=== PATIENT | male | born 1940 | race Caucasian/White ===

== ENCOUNTER → 2016-08-13 | Outpatient (REF) | payer MEDICARE, MEDICAID, OTHER ==
[~2016-08-13] MED LIST: /ADVA50050 IN; /BUSP5TA PO; /ESOM40CA PO; /IPRA3SP INH; /ONDA4TA OR; /PANT40TA OR; /TAMS4CA OR; ACEP650S PR; ALBUTEROL LIQ INH; ALUMSUS2 PO; ANTACID PO; ASPI1TAB PO; ASPI325T PO; AVOD0.5C OR; BABY81CH OR; BACITAB3 PO; BACT800T5 PO; BISA5TAB7 PO; CEFT1INJ3 INJ; CIPR25SS PO; COLA100C PO; COLA100C2 OR; DEPA250T32 PO; DIVA500T3 PO; DOCU100C PO; DULC10SU2 PR; DULCOLAX SUPP PR; ENEMENE3 PR; FISH1000 PO; FLEEENE4 PR; FLEETS ENEMA PR; GUAIFENESIN PO; HYDR50TA8 PO; LEVA750T PO; LOVAZA OR; MENTHOL PO; METO10TA2 OR; METO10TA2 PO; METO5TAB2 OR; MILKSUS PO; MOM; MOM CONCENTRATE PO; MUCU400T2 OR; ONDA1TAB15 PO; PEG1POW PO; PRAV1TAB39 PO; PRAV40TA PO; PROT1TAB2 PO; REGL10TA6 PO; REGL5TAB2 PO; RISP0.2515 PO; RISP1TAB PO; ROSU10TA PO; SENN8.6T10 PO; SENNA S PO; SENO8.6T10 PO; SIMETH PO; SORB70SO PO; TYLE325T5 PO; TYLENOL PO; VICO5TAB PO; VIT-D PO; VITA400C PO; VITMTA PO; ZYPR2.5T2 PO; [UNRECOGNIZED DRUG - CODE]; [UNRECOGNIZED DRUG - CODE] PO; [UNRECOGNIZED DRUG - OTHER]; [UNRECOGNIZED DRUG - OTHER] PO; [UNRECOGNIZED DRUG - OTHER] PO
--- NOTE | 2016-08-13 12:00 | REP ---
Clinical: Abdominal distension. Technique: Portable upright view of the chest and supine view of the abdomen/pelvis. Findings: No obvious free air below the diaphragm to suggest pneumoperitoneum. Bowel gas pattern is nonspecific although fecal stasis and constipation cannot be excluded. Impression: Nonspecific bowel gas pattern. Cannot exclude fecal stasis and constipation. Signed by Obdulio Thompson MD 08/13/2016 11:51 A
== END ==
PROVIDERS: ATTEND Internal Medicine
DX: R14.0 Abdominal distension (gaseous) (principal)

== ENCOUNTER → 2016-09-08 | Outpatient (REF) | payer MEDICARE, MEDICAID, OTHER ==
[2016-09-08 09:40] LABS: MEAN CORPUSCULAR HEMOGLOBIN 29.5 pg (27.0-33.0); MEAN CORPUSCULAR HGB CONC 33.9 g/dl (32.0-36.5); MEAN CORPUSCULAR VOLUME 87.1 fl (80.0-96.0); RED CELL DISTRIBUTION WIDTH 12.5 % (11.5-14.5); WHITE BLOOD COUNT 6.7 K/mm3 (4.0-10.0)
== END ==
PROVIDERS: ATTEND Internal Medicine
DX: I44.0 Atrioventricular block, first degree (principal)

== ENCOUNTER → 2016-10-05 | Outpatient (REF) | payer MEDICARE, MEDICAID, OTHER ==
[~2016-10-05] MED LIST changes: -COLA100C PO; +COLA100C3 PO
== END ==
PROVIDERS: ATTEND Internal Medicine
DX: F31.9 Bipolar disorder, unspecified (principal)

== ENCOUNTER → 2016-10-13 | Outpatient (REF) | payer MEDICARE, MEDICAID, OTHER ==
[2016-10-13 14:01] LABS: MEAN CORPUSCULAR HEMOGLOBIN 30.1 pg (27.0-33.0); MEAN CORPUSCULAR HGB CONC 33.8 g/dl (32.0-36.5); RED CELL DISTRIBUTION WIDTH 12.7 % (11.5-14.5); WHITE BLOOD COUNT 8.4 K/mm3 (4.0-10.0)
[2016-10-13 14:29] LABS: ANION GAP 12 MEQ/L (8-16); BLOOD UREA NITROGEN 14 MG/DL (7-18); CALCIUM LEVEL 8.2 MG/DL (8.8-10.2); CARBON DIOXIDE LEVEL 25 MEQ/L (21-32); CHLORIDE LEVEL 100 MEQ/L (98-107); CREATININE FOR GFR 0.87 MG/DL (0.70-1.30); GLOMERULAR FILTRATION RATE > 60.0 (>42); GLUCOSE, FASTING 102 MG/DL (83-110); POTASSIUM SERUM 3.9 MEQ/L (3.5-5.1); SODIUM LEVEL 137 MEQ/L (136-145)
== END ==
PROVIDERS: ATTEND Internal Medicine
DX: R05 Cough (principal); R50.9 Fever, unspecified

== ENCOUNTER 2016-11-21 00:26 | Emergency (ER) | payer MEDICAID, MEDICARE, OTHER ==
[~2016-11-21] VITALS: Ht 177.8 cm; Wt 92.9 kg
[2016-11-21] MEDS ORDERED: MORPHINE 2 MG/ML 1ML SYRINGE IV ONE (01:00)
[2016-11-21 01:10] LABS: BASO % 0.6 % (0.0-1.0); EOS # 0.2 K/mm3 (0.0-0.50); EOS % 2.8 % (0.0-3.0); LARGE UNSTAINED CELL # 0.2 K/mm3 (0.0-0.4); LARGE UNSTAINED CELL % 3.8 % (0.0-4.0); LYMPH # 1.8 K/mm3 (1.5-4.5); LYMPH % 28.9 % (24.0-44.0); MEAN CORPUSCULAR HEMOGLOBIN 30.3 pg (27.0-33.0); MEAN CORPUSCULAR HGB CONC 34.5 g/dl (32.0-36.5); MEAN CORPUSCULAR VOLUME 87.7 fl (80.0-96.0); MONO # 0.4 K/mm3 (0.0-0.8); MONO % 5.7 % (0.0-5.0); NEUTROPHILS # 3.6 K/mm3 (1.8-7.7); NEUTROPHILS % 58.2 % (36.0-66.0); PLATELET COUNT, AUTOMATED 292 k/mm3 (150-450); RED CELL DISTRIBUTION WIDTH 12.6 % (11.5-14.5); WHITE BLOOD COUNT 6.2 K/mm3 (4.0-10.0)
[2016-11-21] MEDS ORDERED: GASTROGRAFIN SOLUTION 30ML (Q9963) PO ONE ×2 (01:15)
[2016-11-21 01:22] LABS: INR 0.97
[2016-11-21 01:35] LABS: ALBUMIN 3.4 GM/DL (3.2-5.2); ALBUMIN/GLOBULIN RATIO 0.87 (1.00-1.93); ALKALINE PHOSPHATASE 99 U/L (45-117); ALT/SGPT 53 U/L (12-78); AMYLASE 61 U/L (25-115); ANION GAP 8 MEQ/L (8-16); AST/SGOT 33 U/L (15-37); BILIRUBIN,DIRECT < 0.1 MG/DL (0.0-0.2); BILIRUBIN,TOTAL 0.4 MG/DL (0.2-1.0); BLOOD UREA NITROGEN 8 MG/DL (7-18); CALCIUM LEVEL 9.2 MG/DL (8.8-10.2); CARBON DIOXIDE LEVEL 25 MEQ/L (21-32); CHLORIDE LEVEL 104 MEQ/L (98-107); CREATININE FOR GFR 0.89 MG/DL (0.70-1.30); GLOMERULAR FILTRATION RATE > 60.0 (>42); GLUCOSE, FASTING 103 MG/DL (83-110); POTASSIUM SERUM 4.1 MEQ/L (3.5-5.1); SODIUM LEVEL 137 MEQ/L (136-145); TOTAL PROTEIN 7.3 GM/DL (6.4-8.2)
[2016-11-21] MEDS ORDERED: ISOVUE-370 76% 100ML VIAL (Q9967) As Ordered ONE (01:48)
[2016-11-21 04:24] VITALS: BP 138/78
--- NOTE | 2016-11-21 04:30 | REPUSA ---
CLINICAL HISTORY: Abdominal pain. TECHNIQUE: Multiple axial, sagittal and coronal CT images were obtained through the abdomen and pelvi s after administration of oral and intravenous contrast material. COMMENTS: The liver is moderately enlarged with decreased attenuation without mass or defect compatible with fa tty infiltration. Simple hepatic cyst. There is no intra or extrahepatic biliary ductal dilatation. T he spleen is normal. The gallbladder is within normal limits. The pancreas is of normal contour and a ttenuation characteristics. There is no evidence of adrenal mass. Both kidneys demonstrate prompt and equal nephrograms. The kidneys are normal in size, shape and conf iguration. There is no evidence of renal or ureteral mass. No renal or ureteral calculi are identifie d. There is no hydroureter or hydronephrosis. Moderate sliding hiatal hernia. There is nodular wall thickening of distal esophagus, GE junction an d gastric antrum. Further evaluation with upper endoscopy is recommended. No evidence for appendicitis. No evidence for small or large bowel obstruction. There is no evidence of abdominal ascites or lymphadenopathy. Folley catheter is in place. There is no evidence of intrinsic or extrinsic bladder mass. There is no pelvic ascites or lymphadenopathy.Fat containing right inguinal hernia without incarceration. Images of the lung bases show no evidence of pleural or parenchymal mass. There are no pleural effusi ons. The bony structures are free of lytic or blastic lesions. Multilevel degenerative changes are seen in volving the thoracolumbar spine. Scattered calcifications are seen involving the aorta and major bran ches compatible with atherosclerosis. IMPRESSION: Moderate sliding hiatal hernia. There is nodular wall thickening of distal esophagus, GE junction an d gastric antrum. Further evaluation with upper endoscopy is recommended. Fatty liver. Thank you for your kind referral of this patient.
--- NOTE | 2016-11-21 07:15 | ED PDOC ---
Post-Departure Follow-Up radiology report faxed to Dipti Galeas MD Nov 21, 2016 07:14
== END 2016-11-21 05:09 | disposition home or self-care (01) ==
LOC: EDBD 00:26 → M ED 01:14
DX: R10.9 Unspecified abdominal pain (principal); K44.9 Diaphragmatic hernia without obstruction or gangrene; K76.0 Fatty (change of) liver, not elsewhere classified; F03.90 Unspecified dementia, unspecified severity, without behavioral disturbance, psychotic disturbance, mood disturbance, and anxiety; K21.9 Gastro-esophageal reflux disease without esophagitis; J44.9 Chronic obstructive pulmonary disease, unspecified; N40.0 Benign prostatic hyperplasia without lower urinary tract symptoms; Z79.899 Other long term (current) drug therapy; Z88.8 Allergy status to other drugs, medicaments and biological substances
CPT/HCPCS: 74177; 80048; 80076; 82150; 83690; 85025; 85610; 85730; 96374; 99284; Q9963; Q9967

== ENCOUNTER → 2016-12-07 | Outpatient (REF) | payer MEDICARE, MEDICAID ==
[2016-12-07 11:26] LABS: ALBUMIN 3.3 GM/DL (3.2-5.2); ALBUMIN/GLOBULIN RATIO 0.97 (1.00-1.93); ALKALINE PHOSPHATASE 101 U/L (45-117); ALT/SGPT 40 U/L (12-78); ANION GAP 8 MEQ/L (8-16); AST/SGOT 24 U/L (15-37); BILIRUBIN,TOTAL 0.4 MG/DL (0.2-1.0); BLOOD UREA NITROGEN 12 MG/DL (7-18); CALCIUM LEVEL 8.7 MG/DL (8.8-10.2); CARBON DIOXIDE LEVEL 28 MEQ/L (21-32); CHLORIDE LEVEL 101 MEQ/L (98-107); CHOLESTEROL LEVEL 234 MG/DL (<200); CREATININE FOR GFR 0.81 MG/DL (0.70-1.30); GLOMERULAR FILTRATION RATE > 60.0 (>42); GLUCOSE, FASTING 95 MG/DL (83-110); POTASSIUM SERUM 4.4 MEQ/L (3.5-5.1); SODIUM LEVEL 137 MEQ/L (136-145); TOTAL PROTEIN 6.7 GM/DL (6.4-8.2); TRIGLYCERIDES LEVEL 454 MG/DL (<150)
== END ==
PROVIDERS: ATTEND Internal Medicine
DX: E78.5 Hyperlipidemia, unspecified (principal); K21.9 Gastro-esophageal reflux disease without esophagitis

== ENCOUNTER 2017-02-10 06:39 | Outpatient (CLI) | payer MEDICARE, MEDICAID ==
[~2017-02-10] VITALS: Ht 172.7 cm; Wt 90.9 kg
[~2017-02-10 06:39] MED LIST changes: +BACITAB PO; -BACITAB3 PO; -COLA100C3 PO; +COLA100C5 PO; -DOCU100C PO; +DOCU100C16 PO; +ENEMENE16 PR; -ENEMENE3 PR; -LEVA750T PO; +LEVA750T7 PO; -ONDA1TAB15 PO; +ONDA4TAB5 PO; -RISP0.2515 PO; +RISP0.2516 PO; +SENN1TAB10 PO; -SENN8.6T10 PO
[2017-02-10] MEDS ORDERED: SUCR1TA PO (07:19)
[2017-02-10] MEDS ORDERED: LASI20TA PO (07:20)
[2017-02-10] MEDS ORDERED: PROPOFOL 200 MG/20 ML VIAL As Ordered ONE (07:21)
[2017-02-10] MEDS ORDERED: LIDOCAINE 2% INJ 100 MG/5 ML SDV (FOR ANES.) As Ordered ONE (07:21)
[2017-02-10] MEDS ORDERED: NS 1,000 ML IV SCH (07:45)
--- NOTE | 2017-02-10 08:17 | ROOR ---
Patient Name: Maury Bear Procedure Date: 02/10/2017 8:00 AM Date of : 1940 Age: 76 Room: [facility] Gender: Male Note Status: Finalized Procedure: Upper GI endoscopy Indications: Epigastric abdominal pain Providers: Darryn Moy Jr, MD Referring MD: Syeda Osorio DO Requesting Provider: Medicines: Propofol per Anesthesia Complications: No immediate complications. Procedure: Pre-Anesthesia Assessment: - Prior to the procedure, a History and Physical was performed, and patient medications and allergies were reviewed. The patient is competent. The risks and benefits of the procedure and the sedation options and risks were discussed with the patient. All questions were answered and informed consent was obtained. Patient identification and proposed procedure were verified by the physician and the nurse in the pre-procedure area and in the procedure room. Mental Status Examination: alert and oriented. Airway Examination: normal oropharyngeal airway and neck mobility. Respiratory Examination: clear to auscultation. CV Examination: normal. ASA Grade Assessment: III - A patient with severe systemic disease. After reviewing the risks and benefits, the patient was deemed in satisfactory condition to undergo the procedure. The anesthesia plan was to use moderate sedation / analgesia (conscious sedation). Immediately prior to administration of medications, the patient was re-assessed for adequacy to receive sedatives. The heart rate, respiratory rate, oxygen saturations, blood pressure, adequacy of pulmonary ventilation, and response to care were monitored throughout the procedure. The physical status of the patient was re-assessed after the procedure. The Endoscope was introduced through the mouth, and advanced to the jejunum. The upper GI endoscopy was accomplished without difficulty. The patient tolerated the procedure well. Findings: The upper third of the esophagus, middle third of the esophagus and lower third of the esophagus were normal. A medium-sized hiatal hernia was present. Scattered moderate inflammation characterized by erythema, friability and granularity was found in the gastric fundus and in the gastric body. Biopsies were taken with a cold forceps for histology. Evidence of a Cherise-en-Y gastrojejunostomy was found. The gastrojejunal anastomosis was characterized by healthy appearing mucosa. This was traversed. The vromj-qq-zqzaxgm limb was characterized by healthy appearing mucosa. A small amount of food (residue) was found in the gastric body. Impression: - Normal upper third of esophagus, middle third of esophagus and lower third of esophagus. - Medium-sized hiatal hernia. - Gastritis. Biopsied. - Cherise-en-Y gastrojejunostomy with gastrojejunal anastomosis characterized by healthy appearing mucosa. - A small amount of food (residue) in the stomach. Recommendation: - Discharge patient to a long term (with escort). Darryn Moy MD Darryn Moy Jr, MD 02/10/2017 8:17:14 AM This report has been signed electronically. Number of Addenda: 0 Note Initiated On: 02/10/2017 8:00 AM Estimated Blood Loss: Estimated blood loss: none.
[2017-02-10 08:30] VITALS: BP 147/75
== END 2017-02-10 08:45 | disposition home or self-care (01) ==
LOC: EEVIPCON 06:39 → M OPP 06:39
PROVIDERS: ATTEND Surgery
DX: R10.13 Epigastric pain (principal); R93.3 Abnormal findings on diagnostic imaging of other parts of digestive tract; K44.9 Diaphragmatic hernia without obstruction or gangrene; Z98.0 Intestinal bypass and anastomosis status; K29.70 Gastritis, unspecified, without bleeding; K21.9 Gastro-esophageal reflux disease without esophagitis; E78.5 Hyperlipidemia, unspecified; I44.0 Atrioventricular block, first degree; I73.9 Peripheral vascular disease, unspecified; R11.0 Nausea; K59.00 Constipation, unspecified; R12 Heartburn; D64.9 Anemia, unspecified; K58.9 Irritable bowel syndrome, unspecified; Z86.14 Personal history of Methicillin resistant Staphylococcus aureus infection; M19.90 Unspecified osteoarthritis, unspecified site; F03.90 Unspecified dementia, unspecified severity, without behavioral disturbance, psychotic disturbance, mood disturbance, and anxiety; F31.9 Bipolar disorder, unspecified; J44.9 Chronic obstructive pulmonary disease, unspecified; F10.20 Alcohol dependence, uncomplicated; N40.1 Benign prostatic hyperplasia with lower urinary tract symptoms; Z87.891 Personal history of nicotine dependence; Z88.8 Allergy status to other drugs, medicaments and biological substances; Z79.899 Other long term (current) drug therapy

== ENCOUNTER → 2017-03-08 | Outpatient (REF) | payer MEDICARE, MEDICAID, OTHER ==
[~2017-03-08] MED LIST changes: +LASI20TA PO; +SUCR1TA PO
[2017-03-08 10:24] LABS: MEAN CORPUSCULAR HEMOGLOBIN 31.2 pg (27.0-33.0); MEAN CORPUSCULAR HGB CONC 35.5 g/dl (32.0-36.5); MEAN CORPUSCULAR VOLUME 87.8 fl (80.0-96.0); RED CELL DISTRIBUTION WIDTH 12.7 % (11.5-14.5); WHITE BLOOD COUNT 6.4 K/mm3 (4.0-10.0)
== END ==
PROVIDERS: ATTEND Internal Medicine
DX: I48.91 Unspecified atrial fibrillation (principal)

== ENCOUNTER → 2017-04-05 | Outpatient (REF) | payer MEDICARE, MEDICAID, OTHER | PROVIDERS: ATTEND Internal Medicine | DX: F31.9 Bipolar disorder, unspecified (principal) ==

== ENCOUNTER → 2017-05-11 | Outpatient (REF) | payer MEDICARE, MEDICAID, OTHER | PROVIDERS: ATTEND Internal Medicine | DX: N40.1 Benign prostatic hyperplasia with lower urinary tract symptoms (principal) | CPT/HCPCS: 36415; G0103 ==

== ENCOUNTER → 2017-06-07 | Outpatient (REF) | payer MEDICARE, MEDICAID, OTHER ==
[2017-06-07 10:55] LABS: ALBUMIN 3.2 GM/DL (3.2-5.2); ALBUMIN/GLOBULIN RATIO 0.89 (1.00-1.93); ALKALINE PHOSPHATASE 112 U/L (45-117); ALT/SGPT 46 U/L (12-78); ANION GAP 12 MEQ/L (8-16); AST/SGOT 27 U/L (7-37); BILIRUBIN,TOTAL 0.3 MG/DL (0.2-1.0); BLOOD UREA NITROGEN 25 MG/DL (7-18); CALCIUM LEVEL 8.7 MG/DL (8.8-10.2); CARBON DIOXIDE LEVEL 23 MEQ/L (21-32); CHLORIDE LEVEL 108 MEQ/L (98-107); CREATININE FOR GFR 0.84 MG/DL (0.70-1.30); GLOMERULAR FILTRATION RATE > 60.0 (>42); GLUCOSE, FASTING 84 MG/DL (83-110); POTASSIUM SERUM 3.7 MEQ/L (3.5-5.1); SODIUM LEVEL 143 MEQ/L (136-145); TOTAL PROTEIN 6.8 GM/DL (6.4-8.2)
== END ==
PROVIDERS: ATTEND Internal Medicine
DX: K21.9 Gastro-esophageal reflux disease without esophagitis (principal)

== ENCOUNTER → 2017-07-05 | Outpatient (REF) | payer MEDICARE, MEDICAID, OTHER | DX: Z01.818 Encounter for other preprocedural examination (principal); J44.9 Chronic obstructive pulmonary disease, unspecified; F03.90 Unspecified dementia, unspecified severity, without behavioral disturbance, psychotic disturbance, mood disturbance, and anxiety ==

== ENCOUNTER → 2017-07-05 | Outpatient (CLI) | payer MEDICARE, MEDICAID ==
[2017-07-05 10:47] LABS: HEMATOCRIT 49.5 % (42.0-52.0); HEMOGLOBIN 16.1 g/dl (14.0-18.0); MEAN CORPUSCULAR HEMOGLOBIN 28.4 pg (27.0-33.0); MEAN CORPUSCULAR HGB CONC 32.5 g/dl (32.0-36.5); MEAN CORPUSCULAR VOLUME 87.3 fl (80.0-96.0); PLATELET COUNT, AUTOMATED 296 10^3/uL (150-450); RED BLOOD COUNT 5.67 10^6/uL (4.30-6.10); RED CELL DISTRIBUTION WIDTH 13.7 % (11.5-14.5); WHITE BLOOD COUNT 5.8 10^3/uL (4.0-10.0)
[2017-07-05 11:15] LABS: INR 0.97
[2017-07-05 11:16] LABS: ALKALINE PHOSPHATASE 126 U/L (45-117); ALT/SGPT 35 U/L (12-78); ANION GAP 6 MEQ/L (8-16); AST/SGOT 26 U/L (7-37); BLOOD UREA NITROGEN 14 MG/DL (7-18); CALCIUM LEVEL 9.2 MG/DL (8.8-10.2); CARBON DIOXIDE LEVEL 27 MEQ/L (21-32); CHLORIDE LEVEL 106 MEQ/L (98-107); CREATININE FOR GFR 0.71 MG/DL (0.70-1.30); GLOMERULAR FILTRATION RATE > 60.0 (>42); GLUCOSE, FASTING 92 MG/DL (83-110); PARTIAL THROMBOPLASTIN TIME 32.6 SECONDS (26.8-37.9); POTASSIUM SERUM 4.4 MEQ/L (3.5-5.1); SODIUM LEVEL 139 MEQ/L (136-145)
[2017-07-05 11:17] LABS: ALBUMIN 3.8 GM/DL (3.2-5.2); ALBUMIN/GLOBULIN RATIO 1.12 (1.00-1.93); BILIRUBIN,TOTAL 0.5 MG/DL (0.2-1.0); TOTAL PROTEIN 7.2 GM/DL (6.4-8.2)
== END ==
LOC: M LAB 10:07
DX: Z01.818 Encounter for other preprocedural examination (principal); J98.4 Other disorders of lung; J44.9 Chronic obstructive pulmonary disease, unspecified; F03.90 Unspecified dementia, unspecified severity, without behavioral disturbance, psychotic disturbance, mood disturbance, and anxiety
CPT/HCPCS: 71046

== ENCOUNTER → 2017-07-13 | Outpatient (REF) | payer MEDICARE, MEDICAID, OTHER ==
[2017-07-13 13:46] LABS: ANION GAP 10 MEQ/L (8-16); BLOOD UREA NITROGEN 17 MG/DL (7-18); CALCIUM LEVEL 9.4 MG/DL (8.8-10.2); CARBON DIOXIDE LEVEL 30 MEQ/L (21-32); CHLORIDE LEVEL 98 MEQ/L (98-107); CREATININE FOR GFR 0.73 MG/DL (0.70-1.30); GLOMERULAR FILTRATION RATE > 60.0 (>42); GLUCOSE, FASTING 86 MG/DL (70-100); POTASSIUM SERUM 4.2 MEQ/L (3.5-5.1); SODIUM LEVEL 138 MEQ/L (136-145)
== END ==
DX: F32.9 Major depressive disorder, single episode, unspecified (principal)
CPT/HCPCS: 80048

== ENCOUNTER 2017-07-21 08:33 | Day surgery (SDC) | payer MEDICARE, MEDICAID ==
[2017-07-21] MEDS: PROPARACAINE 0.5% OPHTH SOL 15ML XX ×2 (09:05)
[2017-07-21] MEDS: OFLOXACIN 0.3 % (OCUFLOX) OPTH SOL 5ML XX ×2 (09:06)
[2017-07-21] MEDS: PHENYLEPHRINE 2.5% OPHTH SOL 2ML XX ×2 (09:07)
[2017-07-21] MEDS: TROPICAMIDE 1% OPHTH SOLN 2ML XX ×2 (09:07)
[2017-07-21] MEDS: POVIDONE-IODINE 5% OPHTH PREP SOL 30ML As Ordered ×2 (10:20)
[2017-07-21] MEDS ORDERED: MIDAZOLAM INJ 2 MG/2 ML VIAL (J2250) As Ordered ×2 (10:21)
[2017-07-21] MEDS ORDERED: fentaNYL 100 MCG/2 ML INJECTION (J3010) As Ordered ×2 (10:21)
[2017-07-21] MEDS: DUOVISC (0.50ML VISCOAT/0.55ML PROVISC) OPHTH KIT As Ordered ×2 (10:28)
[2017-07-21] MEDS: ACETYLCHOLINE OPHTH SOLN 1% 2ML (MIOCHOL-E) As Ordered ×2 (10:28)
[2017-07-21] MEDS: LIDOCAINE 0.75%/EPINEPHRINE 0.025% IN BSS 1ML SYR INTRACAMERAL (OR ONLY) As Ordered (10:28)
[2017-07-21] MEDS: BALANCED SALT IRRIGATION SOLUTION 500ML BAG (FOR OR EYE MACHINE) As Ordered ×2 (10:28)
[2017-07-21] MEDS: CEFUROXIME 1MG/0.1ML INTRACAMERAL INJ As Ordered ×2 (10:28)
== END 2017-07-21 11:15 | disposition home or self-care (01) ==
LOC: M SDC 08:33
DX: H25.12 Age-related nuclear cataract, left eye (principal); H21.562 Pupillary abnormality, left eye; E78.5 Hyperlipidemia, unspecified; D64.9 Anemia, unspecified; J44.9 Chronic obstructive pulmonary disease, unspecified; F32.9 Major depressive disorder, single episode, unspecified; Z79.899 Other long term (current) drug therapy; Z88.8 Allergy status to other drugs, medicaments and biological substances; K21.9 Gastro-esophageal reflux disease without esophagitis; I44.2 Atrioventricular block, complete
CPT/HCPCS: 66982

== ENCOUNTER 2017-07-28 08:40 | Day surgery (SDC) | payer MEDICARE, MEDICAID ==
[2017-07-28] MEDS ORDERED: LIDOCAINE 1% MDV 20ML VIAL SQ ×2 (09:00)
[2017-07-28] MEDS: PROPARACAINE 0.5% OPHTH SOL 15ML XX ×2 (09:18)
[2017-07-28] MEDS: PHENYLEPHRINE 2.5% OPHTH SOL 2ML XX ×2 (09:18)
[2017-07-28] MEDS: OFLOXACIN 0.3 % (OCUFLOX) OPTH SOL 5ML XX ×2 (09:18)
[2017-07-28] MEDS: TROPICAMIDE 1% OPHTH SOLN 2ML XX ×2 (09:18)
[2017-07-28] MEDS ORDERED: MIDAZOLAM INJ 2 MG/2 ML VIAL (J2250) As Ordered ×2 (09:32)
[2017-07-28] MEDS ORDERED: fentaNYL 100 MCG/2 ML INJECTION (J3010) As Ordered ×2 (09:32)
[2017-07-28] MEDS: POVIDONE-IODINE 5% OPHTH PREP SOL 30ML As Ordered ×2 (09:55)
[2017-07-28] MEDS: LIDOCAINE 0.75%/EPINEPHRINE 0.025% IN BSS 1ML SYR INTRACAMERAL (OR ONLY) As Ordered (09:57)
[2017-07-28] MEDS: DUOVISC (0.50ML VISCOAT/0.55ML PROVISC) OPHTH KIT As Ordered ×2 (10:05)
[2017-07-28] MEDS: ACETYLCHOLINE OPHTH SOLN 1% 2ML (MIOCHOL-E) As Ordered ×2 (10:05)
[2017-07-28] MEDS: BALANCED SALT IRRIGATION SOLUTION 500ML BAG (FOR OR EYE MACHINE) As Ordered ×2 (10:05)
[2017-07-28] MEDS: CEFUROXIME 1MG/0.1ML INTRACAMERAL INJ As Ordered ×2 (10:06)
== END 2017-07-28 11:09 | disposition home or self-care (01) ==
LOC: M SDC 08:40
DX: H25.11 Age-related nuclear cataract, right eye (principal); H21.561 Pupillary abnormality, right eye
CPT/HCPCS: 66982

== ENCOUNTER → 2017-09-09 | Outpatient (REF) | payer MEDICARE, MEDICAID, OTHER ==
[2017-09-09 10:47] LABS: HEMATOCRIT 44.1 % (42.0-52.0); HEMOGLOBIN 14.6 g/dl (14.0-18.0); MEAN CORPUSCULAR HEMOGLOBIN 29.6 pg (27.0-33.0); MEAN CORPUSCULAR HGB CONC 33.1 g/dl (32.0-36.5); MEAN CORPUSCULAR VOLUME 89.3 fl (80.0-96.0); PLATELET COUNT, AUTOMATED 338 10^3/uL (150-450); RED BLOOD COUNT 4.94 10^6/uL (4.30-6.10); RED CELL DISTRIBUTION WIDTH 13.7 % (11.5-14.5); WHITE BLOOD COUNT 8.2 10^3/uL (4.0-10.0)
== END ==
DX: I44.30 Unspecified atrioventricular block (principal)
CPT/HCPCS: 85027

== ENCOUNTER → 2017-10-03 | Outpatient (REF) | payer MEDICARE, MEDICAID, OTHER | LOC: M SFHCLERA 09:01 | DX: C44.629 Squamous cell carcinoma of skin of left upper limb, including shoulder (principal) | CPT/HCPCS: 88305 ==

== ENCOUNTER → 2017-11-04 | Outpatient (REF) | payer MEDICARE, MEDICAID, OTHER ==
[2017-11-04 18:38] LABS: ANION GAP 14 MEQ/L (8-16); BLOOD UREA NITROGEN 21 MG/DL (7-18); CALCIUM LEVEL 8.8 MG/DL (8.8-10.2); CARBON DIOXIDE LEVEL 22 MEQ/L (21-32); CHLORIDE LEVEL 103 MEQ/L (98-107); CREATININE FOR GFR 0.81 MG/DL (0.70-1.30); GLOMERULAR FILTRATION RATE > 60.0 (>42); GLUCOSE, FASTING 108 MG/DL (70-100); POTASSIUM SERUM 4.1 MEQ/L (3.5-5.1); SODIUM LEVEL 139 MEQ/L (136-145)
== END ==
DX: R60.9 Edema, unspecified (principal)
CPT/HCPCS: 80048

== ENCOUNTER → 2017-11-11 | Outpatient (REF) | payer MEDICARE, MEDICAID, OTHER ==
[2017-11-11 10:32] LABS: ANION GAP 9 MEQ/L (8-16); BLOOD UREA NITROGEN 19 MG/DL (7-18); CALCIUM LEVEL 8.8 MG/DL (8.8-10.2); CARBON DIOXIDE LEVEL 27 MEQ/L (21-32); CHLORIDE LEVEL 104 MEQ/L (98-107); CREATININE FOR GFR 0.89 MG/DL (0.70-1.30); GLOMERULAR FILTRATION RATE > 60.0 (>42); GLUCOSE, FASTING 97 MG/DL (70-100); POTASSIUM SERUM 3.7 MEQ/L (3.5-5.1); SODIUM LEVEL 140 MEQ/L (136-145)
== END ==
DX: R60.0 Localized edema (principal)
CPT/HCPCS: 80048

== ENCOUNTER → 2017-11-17 | Outpatient (REF) | payer MEDICARE, MEDICAID, OTHER | LOC: M LAB REF 15:45 | DX: C44.629 Squamous cell carcinoma of skin of left upper limb, including shoulder (principal) | CPT/HCPCS: 88305 ==

== ENCOUNTER → 2017-11-25 | Outpatient (REF) | payer MEDICARE, MEDICAID, OTHER ==
[2017-11-25 11:42] LABS: ANION GAP 8 MEQ/L (8-16); BLOOD UREA NITROGEN 20 MG/DL (7-18); CALCIUM LEVEL 8.8 MG/DL (8.8-10.2); CARBON DIOXIDE LEVEL 26 MEQ/L (21-32); CHLORIDE LEVEL 105 MEQ/L (98-107); CREATININE FOR GFR 0.81 MG/DL (0.70-1.30); GLOMERULAR FILTRATION RATE > 60.0 (>42); GLUCOSE, FASTING 96 MG/DL (70-100); POTASSIUM SERUM 4.2 MEQ/L (3.5-5.1); SODIUM LEVEL 139 MEQ/L (136-145)
== END ==
DX: R60.9 Edema, unspecified (principal)
CPT/HCPCS: 80048

== ENCOUNTER → 2017-12-02 | Outpatient (REF) | payer MEDICARE, MEDICAID, OTHER ==
[2017-12-02 09:16] LABS: ANION GAP 11 MEQ/L (8-16); BLOOD UREA NITROGEN 21 MG/DL (7-18); CALCIUM LEVEL 9.1 MG/DL (8.8-10.2); CARBON DIOXIDE LEVEL 28 MEQ/L (21-32); CHLORIDE LEVEL 101 MEQ/L (98-107); CREATININE FOR GFR 0.83 MG/DL (0.70-1.30); GLOMERULAR FILTRATION RATE > 60.0 (>42); GLUCOSE, FASTING 86 MG/DL (70-100); SODIUM LEVEL 140 MEQ/L (136-145)
== END ==
DX: R60.9 Edema, unspecified (principal)
CPT/HCPCS: 80048

== ENCOUNTER 2018-01-07 03:06 | Emergency (ER) | payer MEDICARE, MEDICAID, OTHER ==
[2018-01-07 04:37] LABS: BASO # 0.1 10^3/uL (0.0-0.2); BASO % 0.6 % (0.0-1.0); EOS # 0.3 10^3/uL (0.0-0.50); EOS % 4.2 % (0.0-3.0); HEMATOCRIT 39.9 % (42.0-52.0); HEMOGLOBIN 13.4 g/dl (13.5-17.5); IMMATURE GRANULOCYTE % 0.2 % (0-3.0); LYMPH # 2.1 10^3/uL (1.5-4.5); LYMPH % 26.5 % (24.0-44.0); MEAN CORPUSCULAR HEMOGLOBIN 29.9 pg (27.0-33.0); MEAN CORPUSCULAR HGB CONC 33.6 g/dl (32.0-36.5); MEAN CORPUSCULAR VOLUME 89.1 fl (80.0-96.0); MONO # 0.7 10^3/uL (0.0-0.8); MONO % 8.4 % (0.0-5.0); NEUTROPHILS # 4.8 10^3/uL (1.8-7.7); NEUTROPHILS % 60.1 % (36.0-66.0); PLATELET COUNT, AUTOMATED 278 10^3/uL (150-450); RED BLOOD COUNT 4.48 10^6/uL (4.30-6.10); RED CELL DISTRIBUTION WIDTH 12.3 % (11.5-14.5)
[2018-01-07 04:44] LABS: AMORPHOUS SEDIMENT RFX SMALL (NEGATIVE); KETONE, URINE AUTO RFX 1+ mg/dL (NEGATIVE); LEUKOCYTE ESTERASE UR AUTO RFX 3+ (NEGATIVE); NITRITE, URINE AUTO RFX POSITIVE (NEGATIVE); RBC, URINE AUTO RFX 26 /HPF (0-3); SPECIFIC GRAVITY UR AUTO RFX 1.018 (1.002-1.035); SQUAM EPITHELIAL CELL UR AURFX 0 /HPF (0-6); WBC, URINE AUTO RFX TNTC /HPF (0-3)
[2018-01-07 05:01] LABS: ALBUMIN 3.3 GM/DL (3.2-5.2); ALKALINE PHOSPHATASE 95 U/L (45-117); ALT/SGPT 43 U/L (12-78); ANION GAP 8 MEQ/L (8-16); AST/SGOT 22 U/L (7-37); BILIRUBIN,DIRECT < 0.1 MG/DL (0.0-0.2); BILIRUBIN,TOTAL 0.2 MG/DL (0.2-1.0); BLOOD UREA NITROGEN 13 MG/DL (7-18); CARBON DIOXIDE LEVEL 29 MEQ/L (21-32); CHLORIDE LEVEL 106 MEQ/L (98-107); CREATININE FOR GFR 0.86 MG/DL (0.70-1.30); GLOMERULAR FILTRATION RATE > 60.0 (>42); GLUCOSE, FASTING 101 MG/DL (70-100); LIPASE 121 U/L (73-393); SODIUM LEVEL 143 MEQ/L (136-145); TOTAL PROTEIN 6.6 GM/DL (6.4-8.2)
[2018-01-07 05:07] LABS: LACTIC ACID SEPSIS PROTOCOL 3.1 MMOL/L (0.4-2.0)
[2018-01-07] MEDS ORDERED: ISOVUE-370 76% 100ML VIAL (Q9967) As Ordered (05:16)
[2018-01-07] MEDS: NS 1,000 ML IV (05:30)
== END 2018-01-07 08:28 | disposition home or self-care (01) ==
LOC: M ED 03:06
DX: K59.00 Constipation, unspecified (principal); K46.9 Unspecified abdominal hernia without obstruction or gangrene; R10.9 Unspecified abdominal pain; F03.90 Unspecified dementia, unspecified severity, without behavioral disturbance, psychotic disturbance, mood disturbance, and anxiety; Z87.891 Personal history of nicotine dependence; K44.9 Diaphragmatic hernia without obstruction or gangrene; R16.0 Hepatomegaly, not elsewhere classified; K76.0 Fatty (change of) liver, not elsewhere classified; K76.89 Other specified diseases of liver; K57.30 Diverticulosis of large intestine without perforation or abscess without bleeding; N40.1 Benign prostatic hyperplasia with lower urinary tract symptoms; Z96.0 Presence of urogenital implants; Z79.899 Other long term (current) drug therapy; Z88.8 Allergy status to other drugs, medicaments and biological substances
CPT/HCPCS: Q9967

== ENCOUNTER → 2018-01-17 | Outpatient (REF) | payer MEDICARE, MEDICAID ==
[2018-01-17 09:45] LABS: HEMATOCRIT 42.9 % (42.0-52.0); HEMOGLOBIN 14.2 g/dl (13.5-17.5); MEAN CORPUSCULAR HEMOGLOBIN 30.3 pg (27.0-33.0); MEAN CORPUSCULAR HGB CONC 33.1 g/dl (32.0-36.5); MEAN CORPUSCULAR VOLUME 91.7 fl (80.0-96.0); PLATELET COUNT, AUTOMATED 326 10^3/uL (150-450); RED BLOOD COUNT 4.68 10^6/uL (4.30-6.10); RED CELL DISTRIBUTION WIDTH 12.6 % (11.5-14.5); WHITE BLOOD COUNT 17.1 10^3/uL (4.0-10.0)
[2018-01-17 09:54] LABS: APPEARANCE, URINE CLOUDY (CLEAR); BACTERIA, URINE AUTO 1+ (NEGATIVE); BILIRUBIN, URINE AUTO NEGATIVE (NEGATIVE); BLOOD, URINE BLOOD NEGATIVE (NEGATIVE); COLOR, URINE YELLOW (YELLOW); GLUCOSE, URINE (UA) AUTO NEGATIVE (NEGATIVE); KETONE, URINE AUTO TRACE mg/dL (NEGATIVE); LEUKOCYTE ESTERASE, URINE AUTO 1+ (NEGATIVE); MUCUS, URINE SMALL (NEGATIVE); NITRITE, URINE AUTO NEGATIVE (NEGATIVE); PROTEIN, URINE AUTO 2+ mg/dL (NEGATIVE); RBC, URINE AUTO 20 /HPF (0-3); SPECIFIC GRAVITY URINE AUTO 1.024 (1.002-1.035); SQUAMOUS EPITHELIAL CELL UR AU 3 /HPF (0-6); UROBILINOGEN, URINE AUTO 0.2 mg/dL (0.0-2.0); WBC, URINE AUTO 79 /HPF (0-3)
[2018-01-17 10:02] LABS: ANION GAP 12 MEQ/L (8-16); BLOOD UREA NITROGEN 14 MG/DL (7-18); CALCIUM LEVEL 8.5 MG/DL (8.8-10.2); CARBON DIOXIDE LEVEL 25 MEQ/L (21-32); CHLORIDE LEVEL 103 MEQ/L (98-107); CREATININE FOR GFR 0.94 MG/DL (0.70-1.30); GLOMERULAR FILTRATION RATE > 60.0 (>42); GLUCOSE, FASTING 91 MG/DL (70-100); POTASSIUM SERUM 4.6 MEQ/L (3.5-5.1); SODIUM LEVEL 140 MEQ/L (136-145)
== END ==
DX: A41.9 Sepsis, unspecified organism (principal)
CPT/HCPCS: 80048

== ENCOUNTER → 2018-01-19 | Outpatient (REF) | payer MEDICARE, MEDICAID ==
[2018-01-19 10:57] LABS: HEMATOCRIT 39.7 % (42.0-52.0); HEMOGLOBIN 13.2 g/dl (13.5-17.5); MEAN CORPUSCULAR HEMOGLOBIN 30.6 pg (27.0-33.0); MEAN CORPUSCULAR HGB CONC 33.2 g/dl (32.0-36.5); MEAN CORPUSCULAR VOLUME 92.1 fl (80.0-96.0); PLATELET COUNT, AUTOMATED 308 10^3/uL (150-450); RED BLOOD COUNT 4.31 10^6/uL (4.30-6.10); RED CELL DISTRIBUTION WIDTH 12.6 % (11.5-14.5)
== END ==
DX: D72.829 Elevated white blood cell count, unspecified (principal)
CPT/HCPCS: 85027

== ENCOUNTER → 2018-04-04 | Outpatient (REF) | payer MEDICARE, MEDICAID ==
[2018-04-04 09:59] LABS: HEMATOCRIT 41.9 % (42.0-52.0); HEMOGLOBIN 13.8 g/dl (13.5-17.5); MEAN CORPUSCULAR HGB CONC 32.9 g/dl (32.0-36.5); MEAN CORPUSCULAR VOLUME 91.1 fl (80.0-96.0); PLATELET COUNT, AUTOMATED 323 10^3/uL (150-450); RED CELL DISTRIBUTION WIDTH 12.8 % (11.5-14.5); WHITE BLOOD COUNT 6.5 10^3/uL (4.0-10.0)
[2018-04-04 10:33] LABS: CHOLESTEROL LEVEL 247 MG/DL (<200); CHOLESTEROL RISK RATIO 7.264 (<5); HDL CHOLESTEROL 34 MG/DL (>40); NON-HDL-C 213 MG/DL; PROSTATIC SPECIFIC AG MONITOR 0.55 NG/ML (< 4.0); TRIGLYCERIDES LEVEL 424 MG/DL (<150); VALPROIC ACID (DEPAKOTE) 34.2 UG/ML (50.0-100.0)
== END ==
DX: F31.9 Bipolar disorder, unspecified (principal); Z79.899 Other long term (current) drug therapy
CPT/HCPCS: 80164

== ENCOUNTER → 2018-06-01 | Outpatient (REF) | payer MEDICARE, MEDICAID ==
[2018-06-01 12:58] LABS: CONTROL LINE HPYORI INT CTR LINE PRESENT; H PYLORI QUALITATIVE IgG DETECTED (NEGATIVE)
== END ==
DX: B96.81 Helicobacter pylori [H. pylori] as the cause of diseases classified elsewhere (principal)
CPT/HCPCS: 86677

== ENCOUNTER → 2018-07-07 | Outpatient (CLI) | payer MEDICARE, MEDICAID ==
[~2018-07-07] MED LIST changes: -DIVA500T3 PO; +DIVA500T94 PO; -ENEMENE16 PR; +ENEMENE4 PR; -LASI20TA PO; +LASI20TA3 PO; +LEXA1TAB PO; +MILK120011 PO; -MILKSUS PO
--- NOTE | 2018-07-07 08:37 | REP ---
Complete abdominal sonography: History: Epigastric pain. Comparison CT study January 07, 2018. Sonographic findings: Scanning through the right upper quadrant of the abdomen demonstrates a fold in the fundal region of the gallbladder but no evidence of stone, polyp, sludge, or wall thickening. Common bile duct is normal measuring 6 mm in greatest diameter. There is poor insonation of the liver consistent with fatty infiltration. There is a cyst in the left lobe posteriorly measuring 2.8 cm in greatest diameter which is unchanged from the CT study. There is a cyst laterally in the right lobe measuring 0.8 cm which can also be seen on the CT. No other focal liver lesion is seen. There is no evidence of ascites. The spleen is normal in size and homogeneous in texture measuring 9.9 cm in greatest diameter. Renal cortical echogenicity pattern is normal. No hydronephrosis is seen on either side. Right renal dimensions are 9.7 x 6.7 x 5.3 cm. The left kidney measures 9.9 x 6.0 x 6.3 cm. There is a parapelvic cyst in the left kidney measuring 2.0 x 1.8 x 1.7 cm and a lower pole cyst in the left kidney measuring 1.8 x 1.5 x 1.6 cm. Impression: Small hepatic and renal cysts. Poorly penetrated liver suggesting fatty infiltration. No other abnormality. Electronically Signed by Christiano Begum MD 07/07/2018 10:37 A
== END ==
LOC: M RAD 06:31
PROVIDERS: ATTEND Nurse Practitioner Adult Health
DX: R10.13 Epigastric pain (principal); R11.10 Vomiting, unspecified

== ENCOUNTER → 2018-07-18 | Outpatient (REF) | payer MEDICARE, MEDICAID ==
[2018-07-18 14:21] LABS: APPEARANCE, URINE CLEAR (CLEAR); BACTERIA, URINE AUTO 1+ (NEGATIVE); BILIRUBIN, URINE AUTO NEGATIVE (NEGATIVE); BLOOD, URINE BLOOD NEGATIVE (NEGATIVE); COLOR, URINE YELLOW (YELLOW); GLUCOSE, URINE (UA) AUTO NEGATIVE (NEGATIVE); KETONE, URINE AUTO NEGATIVE (NEGATIVE); LEUKOCYTE ESTERASE, URINE AUTO 2+ (NEGATIVE); NITRITE, URINE AUTO POSITIVE (NEGATIVE); PROTEIN, URINE AUTO NEGATIVE (NEGATIVE); RBC, URINE AUTO 1 /HPF (0-3); SPECIFIC GRAVITY URINE AUTO 1.004 (1.002-1.035); SQUAMOUS EPITHELIAL CELL UR AU 0 /HPF (0-6); UROBILINOGEN, URINE AUTO 0.2 mg/dL (0.0-2.0); WBC, URINE AUTO 27 /HPF (0-3)
== END ==
PROVIDERS: ATTEND Internal Medicine
DX: R41.82 Altered mental status, unspecified (principal)

== ENCOUNTER → 2018-08-09 | Outpatient (REF) | payer MEDICARE, MEDICAID ==
[2018-08-09 10:51] LABS: BLOOD UREA NITROGEN 9 MG/DL (7-18); CALCIUM LEVEL 8.5 MG/DL (8.8-10.2); CARBON DIOXIDE LEVEL 23 MEQ/L (21-32); CHLORIDE LEVEL 99 MEQ/L (98-107); CREATININE FOR GFR 0.86 MG/DL (0.70-1.30); GLOMERULAR FILTRATION RATE > 60.0 (>42); GLUCOSE, FASTING 119 MG/DL (70-100); POTASSIUM SERUM 4.4 MEQ/L (3.5-5.1); SODIUM LEVEL 135 MEQ/L (136-145)
== END ==
PROVIDERS: ATTEND Internal Medicine
DX: I50.9 Heart failure, unspecified (principal)

== ENCOUNTER → 2018-08-31 | Outpatient (CLI) | payer MEDICARE, MEDICAID ==
[~2018-08-31] MED LIST changes: +AKWA1OIN OU; +ALBU83IN INH; +ARTI99.0 OU; +BISAC5TA PO; +CIPR-249 PO; +CIPR500T3 PO; +CITRSOL8 PO; +CREO3600 PO; +DIVA500T9 PO; +FEVE650S3 PR; +FURO40TA2 PO; +IPRA0.00 INH; +KETO0.02 OU; +METH125I3 INJ; +MIRA3350 PO; +MUCI600T31 PO; +OLAN5TAB PO; +OSEL75CA PO; +PRED10TA2 PO; +RHIN32SU; +SORB70SO36 PO; +SPIR-10 PO; +ZOFR4TAB16 PO
--- NOTE | 2018-08-31 18:27 | REP ---
Ultrasound of a palpable mass in the right forearm: Ultrasonography of the palpable mass and right forearm identifies a soft tissue mass measuring 5.1 by 2.1 x 2.0 cm. The focal zone of hyperemia is identified along the superior margin of the mass. Impression: Nonspecific soft tissue mass with hyperemia along its superior margin. Hematoma versus phlegmon versus neoplasm or some diagnostic considerations. I would recommend MRI for further evaluation. Electronically Signed by Phil Iniguez MD 08/31/2018 06:18 P
== END ==
LOC: M RAD 12:17
PROVIDERS: ATTEND Nurse Practitioner Adult Health
DX: R22.31 Localized swelling, mass and lump, right upper limb (principal)

== ENCOUNTER 2018-09-02 16:48 | Emergency (ER) | payer MEDICARE, MEDICAID ==
[~2018-09-02] VITALS: Ht 167.6 cm; Wt 96.4 kg
[~2018-09-02 16:48] MED LIST changes: -/ADVA50050 IN; -/ESOM40CA PO; -/IPRA3SP INH; -/ONDA4TA OR; -/PANT40TA OR; -/TAMS4CA OR; +ADVA1AER2 IN; -AKWA1OIN OU; -ALBU83IN INH; -ARTI99.0 OU; -ASPI1TAB PO; +ASPI81TA26 PO; +ATRO1SOL13 INH; -BISAC5TA PO; -CEFT1INJ3 INJ; +CEFT1INJ5 INJ; -CIPR-249 PO; -CIPR500T3 PO; -CITRSOL8 PO; -CREO3600 PO; +CRES10TA32 PO; -DIVA500T9 PO; -FEVE650S3 PR; +FLOM0.4C39 OR; -FURO40TA2 PO; -IPRA0.00 INH; -KETO0.02 OU; -METH125I3 INJ; -MIRA3350 PO; -MUCI600T31 PO; +NEXI1CAP3 PO; -OLAN5TAB PO; +ONDA-1 OR; -OSEL75CA PO; -PRED10TA2 PO; +PROT1TAB2 OR; -RHIN32SU; -ROSU10TA PO; +SORB1SOL2 PO; -SORB70SO PO; -SORB70SO36 PO; -SPIR-10 PO; -ZOFR4TAB16 PO
[2018-09-02] MEDS ORDERED: ONDANSETRON 4MG/2ML VIAL (J2405) IV ONE (17:00)
[2018-09-02] MEDS ORDERED: NS 500 ML IV ONE (17:00)
[2018-09-02 17:40] LABS: BASO # 0.1 10^3/uL (0.0-0.2); BASO % 1.2 % (0.0-1.0); EOS # 0.1 10^3/uL (0.0-0.50); EOS % 1.2 % (0.0-3.0); HEMATOCRIT 39.6 % (42.0-52.0); HEMOGLOBIN 13.1 g/dl (13.5-17.5); LYMPH # 0.7 10^3/uL (1.5-4.5); LYMPH % 9.4 % (24.0-44.0); MEAN CORPUSCULAR HEMOGLOBIN 29.2 pg (27.0-33.0); MEAN CORPUSCULAR HGB CONC 33.1 g/dl (32.0-36.5); MEAN CORPUSCULAR VOLUME 88.4 fl (80.0-96.0); MONO # 0.6 10^3/uL (0.0-0.8); MONO % 8.4 % (0.0-5.0); NEUTROPHILS # 5.5 10^3/uL (1.8-7.7); NEUTROPHILS % 79.2 % (36.0-66.0); PLATELET COUNT, AUTOMATED 288 10^3/uL (150-450); RED BLOOD COUNT 4.48 10^6/uL (4.30-6.10); WHITE BLOOD COUNT 6.9 10^3/uL (4.0-10.0)
[2018-09-02] MEDS ORDERED: GI COCKTAIL 50ML BTL(HYOSCYAMINE/MAALOX/LIDOCAINE VISCOUS)(1:3:1) PO ONE (17:45)
[2018-09-02 18:20] LABS: ALBUMIN 3.5 GM/DL (3.2-5.2); ALT/SGPT 58 U/L (12-78); BILIRUBIN,DIRECT < 0.1 MG/DL (0.0-0.2); BILIRUBIN,TOTAL 0.3 MG/DL (0.2-1.0); BLOOD UREA NITROGEN 14 MG/DL (7-18); CALCIUM LEVEL 8.2 MG/DL (8.8-10.2); CARBON DIOXIDE LEVEL 25 MEQ/L (21-32); CHLORIDE LEVEL 99 MEQ/L (98-107); CK-MB VALUE MASS < 1.0 NG/ML (<3.6); CPK CREATINE PHOSPHOKINASE 186 U/L (39-308); CREATININE FOR GFR 1.03 MG/DL (0.70-1.30); GLOMERULAR FILTRATION RATE > 60.0 (>42); GLUCOSE, FASTING 107 MG/DL (70-100); LIPASE 107 U/L (73-393); MB/CK RELATIVE INDEX 0.54 (< OR =4); POTASSIUM SERUM 4.2 MEQ/L (3.5-5.1); SODIUM LEVEL 133 MEQ/L (136-145); TROPONIN I < 0.02 NG/ML (< 0.10); VALPROIC ACID (DEPAKOTE) 71.2 UG/ML (50.0-100.0)
[2018-09-02] MEDS ORDERED: MIRA3350 PO (18:29)
[2018-09-02] MEDS ORDERED: ENEMENE4 PR (18:29)
[2018-09-02] MEDS ORDERED: CITRSOL8 PO (18:29)
[2018-09-02] MEDS ORDERED: FEVE650S3 PR (18:29)
[2018-09-02] MEDS ORDERED: ARTI99.0 OU ×2 (18:29)
[2018-09-02] MEDS ORDERED: CREO3600 PO (18:29)
[2018-09-02] MEDS ORDERED: BISAC5TA PO (18:29)
[2018-09-02] MEDS ORDERED: FURO40TA2 PO (18:29)
[2018-09-02] MEDS ORDERED: SORB70SO36 PO (18:29)
[2018-09-02] MEDS ORDERED: COLA100C5 PO (18:29)
[2018-09-02] MEDS ORDERED: MILK120011 PO (18:29)
[2018-09-02] MEDS ORDERED: AKWA1OIN OU (18:29)
[2018-09-02] MEDS ORDERED: ZOFR4TAB16 PO (18:29)
[2018-09-02] MEDS ORDERED: OLAN5TAB PO (18:29)
[2018-09-02] MEDS ORDERED: DULC10SU2 PR (18:29)
[2018-09-02] MEDS ORDERED: DIVA500T9 PO (18:29)
[2018-09-02] MEDS ORDERED: KETO0.02 OU (18:29)
[2018-09-02] MEDS ORDERED: TYLE325T5 PO (18:29)
[2018-09-02] MEDS ORDERED: SPIR-10 PO (18:29)
--- NOTE | 2018-09-02 19:00 | REP ---
Abdomen flat upright PA chest four views History: Abdominal pain Comparison : 01/17/2018 Air is present in small and large intestine. There is minimal dilatation of the colon. There are no air-fluid levels. There is no pneumoperitoneum. The lungs are clear. The cardiac silhouette is enlarged. Impression: 1. Nonspecific bowel gas pattern. There to cardiomegaly. Electronically Signed by David Fournier MD 09/02/2018 06:52 P
[2018-09-02] MEDS ORDERED: CIPR-249 PO (19:27)
[2018-09-02] MEDS ORDERED: CIPROFLOXACIN 400 MG in APPROPRIATE DILUENT 1 EA IV ONE (19:30)
[2018-09-02] MEDS ORDERED: SIMETHICONE 80 MG CHEW TAB PO ONE (19:30)
[2018-09-02 20:00] VITALS: BP 123/58
--- NOTE | 2018-09-03 18:44 | ECGEPIP ---
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
== END 2018-09-02 20:50 | disposition home or self-care (01) ==
LOC: M ED 16:48
DX: N39.0 Urinary tract infection, site not specified (principal); R10.10 Upper abdominal pain, unspecified; F03.90 Unspecified dementia, unspecified severity, without behavioral disturbance, psychotic disturbance, mood disturbance, and anxiety; I44.0 Atrioventricular block, first degree; K21.9 Gastro-esophageal reflux disease without esophagitis; F31.9 Bipolar disorder, unspecified; Z88.8 Allergy status to other drugs, medicaments and biological substances; Z79.899 Other long term (current) drug therapy
CPT/HCPCS: 74021; 80048; 80076; 80164; 81001; 82550; 82553; 83690; 84484; 85025; 87088; 87186; 93005; 93041; 96374; 96375; 99285; J0744; J2405

== ENCOUNTER → 2018-09-05 | Outpatient (REF) | payer MEDICARE, MEDICAID ==
[~2018-09-05] MED LIST changes: +/ADVA50050 IN; +/ESOM40CA PO; +/IPRA3SP INH; +/ONDA4TA OR; +/PANT40TA OR; +/TAMS4CA OR; -ADVA1AER2 IN; +AKWA1OIN OU; +ARTI99.0 OU; +ASPI1TAB PO; -ASPI81TA26 PO; -ATRO1SOL13 INH; +BISAC5TA PO; +CEFT1INJ3 INJ; -CEFT1INJ5 INJ; +CIPR-249 PO; +CITRSOL8 PO; +CREO3600 PO; -CRES10TA32 PO; +DIVA500T9 PO; +FEVE650S3 PR; -FLOM0.4C39 OR; +FURO40TA2 PO; +KETO0.02 OU; +MIRA3350 PO; -NEXI1CAP3 PO; +OLAN5TAB PO; -ONDA-1 OR; -PROT1TAB2 OR; +ROSU10TA PO; -SORB1SOL2 PO; +SORB70SO PO; +SORB70SO36 PO; +SPIR-10 PO; +ZOFR4TAB16 PO
[2018-09-05 10:21] LABS: BLOOD UREA NITROGEN 10 MG/DL (7-18); CALCIUM LEVEL 7.8 MG/DL (8.8-10.2); CARBON DIOXIDE LEVEL 28 MEQ/L (21-32); CHLORIDE LEVEL 93 MEQ/L (98-107); GLOMERULAR FILTRATION RATE > 60.0 (>42); GLUCOSE, FASTING 100 MG/DL (70-100); POTASSIUM SERUM 3.7 MEQ/L (3.5-5.1); SODIUM LEVEL 129 MEQ/L (136-145)
== END ==
PROVIDERS: ATTEND Internal Medicine
DX: R60.9 Edema, unspecified (principal)

== ENCOUNTER → 2018-09-07 | Outpatient (REF) | payer MEDICARE, MEDICAID ==
[~2018-09-07] MED LIST changes: +ALBU83IN INH; +CIPR500T3 PO; +IPRA0.00 INH; +METH125I3 INJ; +MUCI600T31 PO; +OSEL75CA PO; +PRED10TA2 PO; +RHIN32SU
[2018-09-07 14:32] LABS: INFLUENZA A AMPLIFICATION POSITIVE (NEGATIVE); INFLUENZA B AMPLIFICATION NEGATIVE (NEGATIVE)
== END ==
PROVIDERS: ATTEND Internal Medicine
DX: J06.9 Acute upper respiratory infection, unspecified (principal)

== ENCOUNTER → 2018-09-07 | Outpatient (REF) | payer MEDICARE, MEDICAID ==
[2018-09-07 10:45] LABS: HEMATOCRIT 40.7 % (42.0-52.0); HEMOGLOBIN 13.2 g/dl (13.5-17.5); MEAN CORPUSCULAR HEMOGLOBIN 29.3 pg (27.0-33.0); MEAN CORPUSCULAR HGB CONC 32.4 g/dl (32.0-36.5); MEAN CORPUSCULAR VOLUME 90.4 fl (80.0-96.0); PLATELET COUNT, AUTOMATED 261 10^3/uL (150-450); WHITE BLOOD COUNT 6.8 10^3/uL (4.0-10.0)
[2018-09-07 10:55] LABS: ALBUMIN 3.2 GM/DL (3.2-5.2); ALT/SGPT 57 U/L (12-78); BILIRUBIN,TOTAL 0.4 MG/DL (0.2-1.0); BLOOD UREA NITROGEN 11 MG/DL (7-18); CALCIUM LEVEL 8.3 MG/DL (8.8-10.2); CARBON DIOXIDE LEVEL 26 MEQ/L (21-32); CHLORIDE LEVEL 100 MEQ/L (98-107); CREATININE FOR GFR 0.81 MG/DL (0.70-1.30); GLOMERULAR FILTRATION RATE > 60.0 (>42); GLUCOSE, FASTING 90 MG/DL (70-100); POTASSIUM SERUM 3.9 MEQ/L (3.5-5.1); SODIUM LEVEL 137 MEQ/L (136-145); TOTAL PROTEIN 6.4 GM/DL (6.4-8.2)
--- NOTE | 2018-09-07 13:52 | REP ---
CHEST X-RAY: Semi-erect AP view. HISTORY: Upper respiratory infection. Comparison x-ray is from September 02, 2018. FINDINGS: Cardiac enlargement is again noted unchanged. The lungs are symmetrically aerated and clear. No infiltrate is seen. Pleural angles are sharp. Pulmonary vasculature is cephalized. No evidence of pleural effusion or pulmonary edema. IMPRESSION: Cardiomegaly. Vascular cephalization. No infiltrates seen. Electronically Signed by Christiano Begum MD 09/07/2018 03:11 P
== END ==
PROVIDERS: ATTEND Internal Medicine
DX: J06.9 Acute upper respiratory infection, unspecified (principal); I51.7 Cardiomegaly

== ENCOUNTER 2018-09-08 15:19 | Emergency (ER) | payer MEDICARE, MEDICAID ==
[~2018-09-08 15:19] MED LIST changes: -ALBU83IN INH; -CIPR500T3 PO; -IPRA0.00 INH; -METH125I3 INJ; -MUCI600T31 PO; -OSEL75CA PO; -PRED10TA2 PO; -RHIN32SU
[2018-09-08 15:56] LABS: BASO % 0.3 % (0.0-1.0); EOS % 0.2 % (0.0-3.0); HEMATOCRIT 38.7 % (42.0-52.0); HEMOGLOBIN 12.7 g/dl (13.5-17.5); LYMPH # 0.8 10^3/uL (1.5-4.5); LYMPH % 12.3 % (24.0-44.0); MEAN CORPUSCULAR HEMOGLOBIN 29.7 pg (27.0-33.0); MEAN CORPUSCULAR HGB CONC 32.8 g/dl (32.0-36.5); MEAN CORPUSCULAR VOLUME 90.4 fl (80.0-96.0); MONO # 0.1 10^3/uL (0.0-0.8); MONO % 2.2 % (0.0-5.0); NEUTROPHILS # 5.3 10^3/uL (1.8-7.7); NEUTROPHILS % 84.2 % (36.0-66.0); PLATELET COUNT, AUTOMATED 254 10^3/uL (150-450); RED BLOOD COUNT 4.28 10^6/uL (4.30-6.10); WHITE BLOOD COUNT 6.3 10^3/uL (4.0-10.0)
[2018-09-08 16:06] LABS: INR 1.04; PROTHROMBIN TIME 13.7 SECONDS (12.1-14.4)
[2018-09-08 16:07] LABS: PARTIAL THROMBOPLASTIN TIME 29.7 SECONDS (25.4-37.6)
[2018-09-08 16:31] LABS: ALT/SGPT 49 U/L (12-78); BILIRUBIN,DIRECT < 0.1 MG/DL (0.0-0.2); BILIRUBIN,TOTAL 0.3 MG/DL (0.2-1.0); BLOOD UREA NITROGEN 10 MG/DL (7-18); CALCIUM LEVEL 8.4 MG/DL (8.8-10.2); CARBON DIOXIDE LEVEL 24 MEQ/L (21-32); CHLORIDE LEVEL 103 MEQ/L (98-107); CK-MB VALUE MASS < 1.0 NG/ML (<3.6); CPK CREATINE PHOSPHOKINASE 76 U/L (39-308); CREATININE FOR GFR 0.95 MG/DL (0.70-1.30); FREE T4 1.16 NG/DL (0.76-1.46); GLOMERULAR FILTRATION RATE > 60.0 (>42); GLUCOSE, FASTING 157 MG/DL (70-100); MB/CK RELATIVE INDEX 1.32 (< OR =4); NT-PRO BNP 120 PG/ML (<450); POTASSIUM SERUM 4.2 MEQ/L (3.5-5.1); SODIUM LEVEL 137 MEQ/L (136-145); TOTAL PROTEIN 6.4 GM/DL (6.4-8.2); TROPONIN I < 0.02 NG/ML (< 0.10)
[2018-09-08 16:34] LABS: INFLUENZA A AMPLIFICATION POSITIVE (NEGATIVE); INFLUENZA B AMPLIFICATION NEGATIVE (NEGATIVE)
--- NOTE | 2018-09-08 16:46 | REP ---
Chest x-ray: Three views. History: Chest pain. Comparison chest x-ray: September 07, 2018. Findings: EKG monitoring electrodes overlie the chest. The lungs are symmetrically aerated and free of infiltrate. Heart size is at the upper range of normal unchanged. There are clips in the upper abdomen. Pulmonary vasculature is not increased. Impression: Borderline heart size. No acute infiltrate. Electronically Signed by Christiano Begum MD 09/08/2018 04:38 P
[2018-09-08] MEDS ORDERED: CIPR500T3 PO (16:57)
[2018-09-08] MEDS ORDERED: PRED10TA2 PO (16:57)
[2018-09-08] MEDS ORDERED: MUCI600T31 PO (16:57)
[2018-09-08] MEDS ORDERED: METH125I3 INJ (16:57)
[2018-09-08] MEDS ORDERED: ALBU83IN INH (16:57)
[2018-09-08] MEDS ORDERED: OSEL75CA PO (16:57)
[2018-09-08] MEDS ORDERED: RHIN32SU (16:57)
[2018-09-08] MEDS ORDERED: TYLE325T5 PO (16:57)
[2018-09-08] MEDS ORDERED: IPRA0.00 INH (16:57)
[2018-09-08] MEDS ORDERED: IPRATROPIUM 0.5MG/ALBUTEROL 2.5MG INH SOL UD 3ML (DUONEB)(J7620) NEB ONE ×3 (17:00→17:30)
[2018-09-08] MEDS ORDERED: methylPREDNISolone INJ 125 MG/2 ML VIAL (J2930) IV ONE (17:30)
[2018-09-08 20:17] VITALS: BP 150/67
--- NOTE | 2018-09-09 07:26 | ECGEPIP ---
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
== END 2018-09-08 20:35 | disposition home or self-care (01) ==
LOC: M ED 15:19
DX: J10.1 Influenza due to other identified influenza virus with other respiratory manifestations (principal); N39.0 Urinary tract infection, site not specified; J44.9 Chronic obstructive pulmonary disease, unspecified; F03.90 Unspecified dementia, unspecified severity, without behavioral disturbance, psychotic disturbance, mood disturbance, and anxiety; K21.9 Gastro-esophageal reflux disease without esophagitis; N40.1 Benign prostatic hyperplasia with lower urinary tract symptoms; R33.9 Retention of urine, unspecified; F31.9 Bipolar disorder, unspecified; Z79.51 Long term (current) use of inhaled steroids; Z79.52 Long term (current) use of systemic steroids; Z79.899 Other long term (current) drug therapy; Z88.8 Allergy status to other drugs, medicaments and biological substances; R50.9 Fever, unspecified

== ENCOUNTER → 2018-09-08 | Outpatient (REF) | payer MEDICARE, MEDICAID ==
[2018-09-08 14:53] LABS: BASO % 0.4 % (0.0-1.0); EOS % 0.3 % (0.0-3.0); HEMATOCRIT 38.8 % (42.0-52.0); HEMOGLOBIN 12.6 g/dl (13.5-17.5); LYMPH # 1.4 10^3/uL (1.5-4.5); LYMPH % 20.2 % (24.0-44.0); MEAN CORPUSCULAR HEMOGLOBIN 29.3 pg (27.0-33.0); MEAN CORPUSCULAR HGB CONC 32.5 g/dl (32.0-36.5); MEAN CORPUSCULAR VOLUME 90.2 fl (80.0-96.0); MONO # 0.2 10^3/uL (0.0-0.8); MONO % 2.7 % (0.0-5.0); NEUTROPHILS # 5.2 10^3/uL (1.8-7.7); NEUTROPHILS % 75.8 % (36.0-66.0); PLATELET COUNT, AUTOMATED 264 10^3/uL (150-450); WHITE BLOOD COUNT 6.9 10^3/uL (4.0-10.0)
== END ==
PROVIDERS: ATTEND Internal Medicine
DX: R50.9 Fever, unspecified (principal)

== ENCOUNTER → 2018-09-11 | Outpatient (REF) | payer MEDICARE, MEDICAID ==
[~2018-09-11] MED LIST changes: +ALBU83IN INH; +CIPR500T3 PO; +IPRA0.00 INH; +METH125I3 INJ; +MUCI600T31 PO; +OSEL75CA PO; +PRED10TA2 PO; +RHIN32SU
[2018-09-11 10:42] LABS: BLOOD UREA NITROGEN 16 MG/DL (7-18); CALCIUM LEVEL 8.7 MG/DL (8.8-10.2); CARBON DIOXIDE LEVEL 26 MEQ/L (21-32); CHLORIDE LEVEL 99 MEQ/L (98-107); CREATININE FOR GFR 0.77 MG/DL (0.70-1.30); GLOMERULAR FILTRATION RATE > 60.0 (>42); GLUCOSE, FASTING 79 MG/DL (70-100); POTASSIUM SERUM 4.1 MEQ/L (3.5-5.1); SODIUM LEVEL 135 MEQ/L (136-145)
== END ==
PROVIDERS: ATTEND Nurse Practitioner Adult Health
DX: E87.1 Hypo-osmolality and hyponatremia (principal)

== ENCOUNTER → 2018-09-15 | Outpatient (CLI) | payer MEDICARE, MEDICAID ==
--- NOTE | 2018-09-15 14:41 | REP ---
MRI RIGHT FOREARM WITHOUT IV CONTRAST: HISTORY: Soft tissue mass. The patient reports presence of soft tissue mass for the last 10 months. MR markers are affixed to the skin at the site of the lesion. MRI FINDINGS: There is a homogeneous well-defined homogeneously fat density lesion in the proximal forearm at the level of the skin markers denoting the palpable abnormality consistent with a benign lipoma. This measures 2.7 x 3.2 x 6.2 cm in dimension. It is just distal to the antecubital soft tissues along the ventral and radial aspect of the proximal forearm. No other soft tissue mass is seen. Cortical and medullary bone signal intensity are normal. No fluid collection is seen. 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 Electronically Signed by Christiano Begum MD 09/15/2018 02:42 P
== END ==
LOC: M RAD 10:36
PROVIDERS: ATTEND Nurse Practitioner Adult Health
DX: D17.21 Benign lipomatous neoplasm of skin and subcutaneous tissue of right arm (principal)

== ENCOUNTER → 2018-09-26 | Outpatient (REF) | payer MEDICARE, MEDICAID ==
[~2018-09-26] MED LIST changes: -/ADVA50050 IN; -/ESOM40CA PO; -/IPRA3SP INH; -/ONDA4TA OR; -/PANT40TA OR; -/TAMS4CA OR; +ADVA1AER2 IN; -ASPI1TAB PO; +ASPI81TA26 PO; +ATRO1SOL13 INH; -CEFT1INJ3 INJ; +CEFT1INJ5 INJ; +CRES10TA32 PO; +FLOM0.4C39 OR; +NEXI1CAP3 PO; +ONDA-1 OR; +PROT1TAB2 OR; -ROSU10TA PO; +SORB1SOL2 PO; -SORB70SO PO
== END ==
PROVIDERS: ATTEND Nurse Practitioner Adult Health
DX: R63.5 Abnormal weight gain (principal)

== ENCOUNTER → 2018-10-03 | Outpatient (REF) | payer MEDICARE, MEDICAID ==
[2018-10-03 09:31] LABS: HEMATOCRIT 43.5 % (42.0-52.0); HEMOGLOBIN 14.1 g/dl (13.5-17.5); MEAN CORPUSCULAR HEMOGLOBIN 29.5 pg (27.0-33.0); MEAN CORPUSCULAR HGB CONC 32.4 g/dl (32.0-36.5); PLATELET COUNT, AUTOMATED 304 10^3/uL (150-450); RED BLOOD COUNT 4.78 10^6/uL (4.30-6.10); WHITE BLOOD COUNT 7.5 10^3/uL (4.0-10.0)
[2018-10-03 10:14] LABS: ALBUMIN 3.4 GM/DL (3.2-5.2); ALT/SGPT 45 U/L (12-78); BILIRUBIN,TOTAL 0.2 MG/DL (0.2-1.0); BLOOD UREA NITROGEN 8 MG/DL (7-18); CALCIUM LEVEL 8.4 MG/DL (8.8-10.2); CARBON DIOXIDE LEVEL 23 MEQ/L (21-32); CHLORIDE LEVEL 103 MEQ/L (98-107); CREATININE FOR GFR 0.84 MG/DL (0.70-1.30); GLOMERULAR FILTRATION RATE > 60.0 (>42); GLUCOSE, FASTING 119 MG/DL (70-100); POTASSIUM SERUM 4.1 MEQ/L (3.5-5.1); SODIUM LEVEL 138 MEQ/L (136-145); TOTAL PROTEIN 6.9 GM/DL (6.4-8.2); VALPROIC ACID (DEPAKOTE) 32.5 UG/ML (50.0-100.0)
== END ==
PROVIDERS: ATTEND Internal Medicine
DX: R63.5 Abnormal weight gain (principal)

== ENCOUNTER → 2018-10-16 | Outpatient (REF) | payer MEDICARE, MEDICAID ==
[2018-10-16 10:28] LABS: BLOOD UREA NITROGEN 6 MG/DL (7-18); CALCIUM LEVEL 8.1 MG/DL (8.8-10.2); CARBON DIOXIDE LEVEL 21 MEQ/L (21-32); CHLORIDE LEVEL 97 MEQ/L (98-107); CREATININE FOR GFR 0.88 MG/DL (0.70-1.30); GLOMERULAR FILTRATION RATE > 60.0 (>42); GLUCOSE, FASTING 103 MG/DL (70-100); POTASSIUM SERUM 3.7 MEQ/L (3.5-5.1); SODIUM LEVEL 133 MEQ/L (136-145)
== END ==
PROVIDERS: ATTEND Internal Medicine
DX: I50.9 Heart failure, unspecified (principal)

== ENCOUNTER → 2018-10-16 | Outpatient (REF) | payer MEDICARE, MEDICAID | LOC: M SFHCPLAZ 17:23 | PROVIDERS: ATTEND Dermatology | DX: C44.320 Squamous cell carcinoma of skin of unspecified parts of face (principal); D04.30 Carcinoma in situ of skin of unspecified part of face ==

== ENCOUNTER 2018-12-25 21:06 | Emergency (ER) | payer MEDICARE, MEDICAID ==
[~2018-12-25] VITALS: Ht 172.7 cm; Wt 95.9 kg
[2018-12-25] MEDS ORDERED: LIDOCAINE 2% 5ML JELLY UROJET TOP ONE (22:00)
[2018-12-25] MEDS ORDERED: OLAN2.5T25 PO (22:47)
[2018-12-25] MEDS ORDERED: CREO3600 PO (22:47)
[2018-12-25] MEDS ORDERED: AKWA1OIN OU (22:47)
[2018-12-25] MEDS ORDERED: DOCU100C16 PO (22:47)
[2018-12-25] MEDS ORDERED: DIVA500T9 PO (22:47)
[2018-12-25] MEDS ORDERED: LEXA1TAB PO (22:47)
[2018-12-25] MEDS ORDERED: SORB70SO36 PO (22:47)
[2018-12-25] MEDS ORDERED: EUCECRE8 TOP (22:47)
[2018-12-25] MEDS ORDERED: BISA5TAB5 PO (22:47)
[2018-12-25] MEDS ORDERED: KP K0.02 OU (22:47)
[2018-12-25] MEDS ORDERED: PANT-23 PO (22:47)
[2018-12-25] MEDS ORDERED: HYDR25OI TOP (22:47)
[2018-12-25] MEDS ORDERED: RA S8.6T3 PO (22:47)
[2018-12-25] MEDS ORDERED: ZOFR4TAB16 PO (22:47)
[2018-12-25] MEDS ORDERED: ACET1TAB55 PO (22:47)
[2018-12-25] MEDS ORDERED: ARTI99.0 OU ×2 (22:47)
[2018-12-25] MEDS ORDERED: FLEEENE12 PR (22:47)
[2018-12-25] MEDS ORDERED: ACET65SU PR (22:47)
[2018-12-25] MEDS ORDERED: OLAN5TAB PO (22:47)
[2018-12-25] MEDS ORDERED: MIRA1POW3 PO (22:47)
[2018-12-25] MEDS ORDERED: SPIR-10 PO (22:47)
[2018-12-25] MEDS ORDERED: MAGN1.743 PO (22:47)
[2018-12-25] MEDS ORDERED: IPRA0.00 INH (22:47)
[2018-12-25] MEDS ORDERED: MILKSUS3 PO (22:47)
[2018-12-25] MEDS ORDERED: ALBU83IN INH (22:47)
[2018-12-25] MEDS ORDERED: FURO40TA2 PO (22:47)
[2018-12-25 23:15] VITALS: BP 148/83
[2018-12-31] MEDS ORDERED: BISA5TAB5 PO (11:38)
[2018-12-31] MEDS ORDERED: ARTI99.0 OU (12:00)
== END 2018-12-25 23:20 | disposition home or self-care (01) ==
LOC: M ED 21:06
DX: T83.098A Other mechanical complication of other urinary catheter, initial encounter (principal); N41.0 Acute prostatitis; J44.9 Chronic obstructive pulmonary disease, unspecified; I11.9 Hypertensive heart disease without heart failure; N40.1 Benign prostatic hyperplasia with lower urinary tract symptoms; Z79.51 Long term (current) use of inhaled steroids; Z79.899 Other long term (current) drug therapy; Z87.891 Personal history of nicotine dependence; Z88.8 Allergy status to other drugs, medicaments and biological substances

== ENCOUNTER 2018-12-31 10:39 | Inpatient (IN) | payer MEDICARE, MEDICAID ==
[~2018-12-31] VITALS: Ht 182.9 cm; Wt 63.6 kg
[~2018-12-31 10:39] MED LIST changes: +ACET1TAB55 PO; +ACET65SU PR; -ARTI99.0 OU; +ARTIDRO2 OU; +BISA5TAB13 PO; +EUCECRE8 TOP; +FLEEENE12 PR; +HYDR25OI TOP; +KETO0.022 OU; +MAGN1.743 PO; +MILKSUS3 PO; +MIRA1POW3 PO; +OLAN2.5T25 PO; +ONDA-83 PO; -ONDA4TAB5 PO; +PANT-23 PO; +RA S8.6T3 PO
[2018-12-31] MEDS ORDERED: NS 1,000 ML IV SCH ×2 (11:10→17:00)
[2018-12-31] MEDS ORDERED: MORPHINE 2 MG/ML 1ML VIAL (J2270) IV ONE (11:15)
[2018-12-31] MEDS ORDERED: BISA5TAB13 PO (11:38)
[2018-12-31] MEDS ORDERED: MOM30SS2 PO (11:38)
[2018-12-31 11:40] LABS: BASO % 0.3 % (0.0-1.0); EOS % 0.3 % (0.0-3.0); HEMATOCRIT 43.9 % (42.0-52.0); HEMOGLOBIN 14.4 g/dl (13.5-17.5); LYMPH # 0.4 10^3/uL (1.5-4.5); LYMPH % 4.8 % (24.0-44.0); MEAN CORPUSCULAR HEMOGLOBIN 30.1 pg (27.0-33.0); MEAN CORPUSCULAR HGB CONC 32.8 g/dl (32.0-36.5); MEAN CORPUSCULAR VOLUME 91.8 fl (80.0-96.0); MONO # 0.1 10^3/uL (0.0-0.8); MONO % 0.7 % (0.0-5.0); NEUTROPHILS # 8.1 10^3/uL (1.8-7.7); NEUTROPHILS % 93.6 % (36.0-66.0); PLATELET COUNT, AUTOMATED 315 10^3/uL (150-450); RED BLOOD COUNT 4.78 10^6/uL (4.30-6.10); WHITE BLOOD COUNT 8.7 10^3/uL (4.0-10.0)
[2018-12-31] MEDS ORDERED: DEPA1TAB3 PO (11:52)
[2018-12-31] MEDS ORDERED: BISA10SU27 PR (11:58)
[2018-12-31] MEDS ORDERED: ARTIDRO2 OU (12:00)
[2018-12-31 12:07] LABS: ALBUMIN 3.5 GM/DL (3.2-5.2); ALT/SGPT 43 U/L (12-78); BILIRUBIN,DIRECT 0.2 MG/DL (0.0-0.2); BILIRUBIN,TOTAL 0.5 MG/DL (0.2-1.0); BLOOD UREA NITROGEN 13 MG/DL (7-18); CALCIUM LEVEL 8.8 MG/DL (8.8-10.2); CARBON DIOXIDE LEVEL 22 MEQ/L (21-32); CHLORIDE LEVEL 100 MEQ/L (98-107); CREATININE FOR GFR 1.13 MG/DL (0.70-1.30); GLOMERULAR FILTRATION RATE > 60.0 (>42); GLUCOSE, FASTING 105 MG/DL (70-100); LIPASE 82 U/L (73-393); POTASSIUM SERUM 4.4 MEQ/L (3.5-5.1); SODIUM LEVEL 136 MEQ/L (136-145); TOTAL PROTEIN 7.4 GM/DL (6.4-8.2)
--- NOTE | 2018-12-31 12:14 | REP ---
Chest x-ray: Two views. History: Shortness of breath. Comparison study: September 08, 2018. Findings: EKG monitoring electrodes overlie the chest. There is evidence of a hiatal hernia. The aorta is somewhat tortuous. Mild cardiomegaly. Pleural angles are sharp. Lung holland are clear. Pulmonary vasculature is not increased. Impression: Cardiomegaly and hiatal hernia. Otherwise no acute disease. Electronically Signed by Christiano Begum MD 12/31/2018 12:07 P
[2018-12-31] MEDS ORDERED: ISOVUE-370 76% 100ML VIAL (Q9967) As Ordered ONE (12:18)
[2018-12-31 12:38] LABS: CK-MB VALUE MASS < 1.0 NG/ML (<3.6); CPK CREATINE PHOSPHOKINASE 114 U/L (39-308); MB/CK RELATIVE INDEX 0.88 (< OR =4); TROPONIN I < 0.02 NG/ML (< 0.10); VALPROIC ACID (DEPAKOTE) 73.9 UG/ML (50.0-100.0)
[2018-12-31] MEDS ORDERED: IPRATROPIUM 0.5MG/ALBUTEROL 2.5MG INH SOL UD 3ML (DUONEB)(J7620) NEB ONE (14:00)
[2018-12-31] MEDS ORDERED: ONDANSETRON 4MG/2ML VIAL (J2405) IV ONE (14:15)
[2018-12-31] MEDS ORDERED: MOM 30ML SUSPENSION UDC PO PRN (16:45)
[2018-12-31] MEDS ORDERED: ACETAMINOPHEN TAB 650MG DOSE (2X325MG) PO PRN (16:45)
[2018-12-31] MEDS ORDERED: BISACODYL 10 MG SUPP PR PRN (16:45)
[2018-12-31] MEDS ORDERED: FLEET ENEMA PR PRN (16:45)
[2018-12-31] MEDS ORDERED: POLYVINYL ALCOHOL OPHTH SOLN 15 ML(LIQUITEARS) OU PRN (16:45)
[2018-12-31] MEDS ORDERED: PIPERACILLIN/TAZOBACTAM SOD 3.375 GM in D5W MINI-BAG PLUS 50 ML IV SCH (18:00)
[2018-12-31] MEDS: MORPHINE 4 MG/ML 1ML VIAL/SYRINGE (J2270) IV PRN ×2 (18:17→21:08)
[2018-12-31] MEDS ORDERED: IPRATROPIUM 0.5MG/ALBUTEROL 2.5MG INH SOL UD 3ML (DUONEB)(J7620) INH SCH (20:00)
[2018-12-31] MEDS ORDERED: DOCUSATE SODIUM 100 MG CAP PO SCH (21:00)
[2018-12-31] MEDS ORDERED: OLANZapine 2.5MG TABLET PO SCH (21:00)
[2018-12-31] MEDS ORDERED: SORBITOL 70% 30ML UNIT DOSE CUP PO SCH (21:00)
[2018-12-31] MEDS ORDERED: DIVALPROEX 500 MG TAB PO SCH (21:00)
[2018-12-31] MEDS ORDERED: POLYVINYL ALCOHOL OPHTH SOLN 15 ML(LIQUITEARS) OU SCH (21:00)
--- NOTE | 2018-12-31 21:49 | HPE ---
DATE OF ADMISSION: 12/31/2018 PRIMARY CARE PROVIDER: Dr. Syeda Osorio ATTENDING PHYSICIAN: Rj Muhammad MD CHIEF COMPLAINT: Abdominal pain. HISTORY OF PRESENT ILLNESS: The patient is a 78-year-old white male with multiple chronic medical conditions listed below came to the emergency room (ER) for evaluation of above complaints. History is provided by himself, but he is a poor historian. Per emergency room (ER) record, the patient was in [facility]. He had chronic Valerio catheter placed due to urinary retention. Yesterday, he pulled out his Valerio catheter and the new one was reinserted. Since then, he complained of horrible abdominal pain and he was sent over here for further evaluation. In the emergency room (ER), he underwent CT abdomen and pelvis, which showed possible ischemic bowel. Vascular surgery on-call was contacted by emergency room (ER) attending and recommended transferring him for high level care if the family wanted to do any further work up. However, per his healthcare proxy, which is his sister, Kezia, said the patient is DO NOT RESUSCITATE, DO NOT INTUBATE and is on comfort care and they do not want any surgical intervention. So, he was given IV fluid and pain medicine in the emergency room (ER). Meanwhile, medicine service called for admission. REVIEW OF SYSTEMS: Denies fever, no headache. No chest pain. No nausea or vomiting. Severe abdominal pain, 10/10. No diarrhea. Nausea and vomiting was yesterday. All other systems reviewed were negative. PAST MEDICAL HISTORY: 1. Bipolar disorder. 2. Benign prostatic hypertrophy (BPH) with chronic urinary retention, chronic Valerio catheter. 3. Chronic obstructive pulmonary disease (COPD), is not on oxygen supplement. 4. Dementia. 5. Acid reflux. 6. Dyslipidemia. PAST SURGICAL HISTORY: Partial gastrectomy, as well as right arm squamous cell carcinoma removed. ALLERGIES: PROCHLORPERAZINE. SOCIAL HISTORY: He has remote tobacco use, but quit many years. No alcohol abuse, no illicit drug use. He is a resident in [facility]. He is DO NOT RESUSCITATE, DO NOT INTUBATE. FAMILY HISTORY: Reviewed. Both parents passed. His mother from heart attack MEDICATIONS: Reviewed. PHYSICAL EXAMINATION: VITAL SIGNS: Temperature 99.9, heart rate 129, respiratory rate 22, blood pressure 154/60, oxygen saturation is 92% on room air and 98% on 2 liters of oxygen. GENERAL: He is awake, alert. He is oriented to people and place only. He is in acute pain distress. HEENT: Atraumatic. Pupils equal, round, reactive to light. No jaundice. Extraocular muscles intact. Ears, nose throat: Normal mouth. Mucosa dry. NECK: No jugular venous distension (JVD). No bruits. LUNGS: Decreased breath sounds, but no wheeze and no crackles. HEART: S1, S2 regular, but tachycardiac. No murmur. ABDOMEN: Soft. Bowel sounds positive. Mildly distended and diffuse tenderness, but no rebound. EXTREMITIES: He has trace edema in bilateral lower extremities. NEUROLOGICAL: Nonfocal. He moves his arms and lower extremities freely. SKIN: Rash. PSYCHOLOGICAL: No acute psychosis, is not agitated. He does have a Valerio catheter in place. DIAGNOSTIC LAB STUDY INCLUDE THE FOLLOWING: Complete blood count (CBC) and differential: White blood count (WBC) 8.7, hemoglobin and hematocrit 14/44, platelets 315. Sodium 136, potassium 4.4, chloride 100, bicarbonate 22, BUN 13, creatinine 1.1, glucose 105. Lactic acid 3.9. CT of abdomen and pelvis, as well as CT angiogram was done, but formal report is pending. IMPRESSION: 1. Severe abdominal pain. 2. Chronic urinary retention on chronic Valerio catheter. 3. Chronic obstructive pulmonary disease (COPD). 4. Dementia. PLAN: The patient will be admitted to the med-surg floor. Per his MOLST form, he is DO NOT RESUSCITATE, DO NOT INTUBATE, comfort care only. I will treat him with IV fluid, IV Zosyn for possible urinary tract infection and pain control. Will restart home medications. Following attending will discuss with family to clarify the treatment goal. Lovenox will be given for deep vein thrombosis (DVT) prophylaxis. [facility]
[2018-12-31 23:18] VITALS: BP 124/58
[2019-01-01 00:08] LABS: ABG O2 SATURATION 94.7 % (95.0-99.0)
[2019-01-01 00:10] LABS: ABG BASE EXCESS -3.7 (-2.0-2.0); ABG HCO3 29.6 MEQ/L (22.0-26.0); ABG PARTIAL PRESSURE O2 94.1 mmHg (75.0-100.0); ABG STANDARD HCO3 21.4 MEQ/L (22.0-26.0); ABG TOTAL CO2 32.8 MEQ/L (23.0-31.0)
[2019-01-01 00:12] LABS: ABG pH (ARTERIAL) 7.074 UNITS (7.350-7.450)
[2019-01-01 00:13] LABS: ABG PARTIAL PRESSURE CO2 103.6 mmHg (35.0-45.0)
--- NOTE | 2019-01-01 00:27 | IPNPDOC ---
Text Note Date of Service The patient was seen on 12/31/18. NOTE I was called by the patient's bedside RN for a change in mental status and in creased respiratory distress. Upon arriving at the bedside. The patient was noted to be obtunded and unresponsive to verbal or noxious stimuli. The patient's lung sounds were coarse/diminished and abdomen was noted to be distended and firm to palpation. After reviewing the patient's chart, it appears that he was admitted for possible ischemic bowel. The patient's family had decided that surgery was not an option. I called the patient's HCP Kezia Black (sister) and she came to the bedside. We discussed the current events and what the patient's wishes would be. She stated that he was DNR/DNI, and given the patient's clinical condition he would not want any further invasive management. She opted to make the patient comfort measures only. The implications of this decision were discussed at length with Mrs. Black. She verbalized understanding of the same, and has agreed to proceed. A MOLST form was updated, signed, and placed in the chart. We will continue to provide supportive care to the patient and family. Assessment: Acute Hypercarbic Respiratory Failure with Metabolic Encephalopathy 2/2 Hypercarbia Suspected Ischemic Bowel VS,Tawny, I+O VS, Tawny, I+O Laboratory Tests 12/31/18 11:28 Red Blood Count 4.78, Mean Corpuscular Volume 91.8, Mean Corpuscular Hemoglobin 30.1, Mean Corpuscular Hemoglobin Concent 32.8, Red Cell Distribution Width 13.7, Neutrophils (%) (Auto) 93.6 H, Lymphocytes (%) (Auto) 4.8 L, Monocytes (%) (Auto) 0.7, Eosinophils (%) (Auto) 0.3, Basophils (%) (Auto) 0.3, Neutrophils # (Auto) 8.1 H, Lymphocytes # (Auto) 0.4 L, Monocytes # (Auto) 0.1, Eosinophils # (Auto) 0.0, Basophils # (Auto) 0.0 Vital Signs Date Time Temp Pulse Resp B/P (MAP) Pulse Ox O2 Delivery O2 Flow Rate FiO2 12/31/18 23:18 99.2 114 19 124/58 (80) 91 Non-Rebreather 5.0 I&O- Last 24 Hours up to 6 AM 01/01/19 06:00 Intake Total 2600 ml Balance 2600 ml KATHARINE PHILIP MD Jan 01, 2019 00:27
[2019-01-01] MEDS ORDERED: MORPHINE 10MG/0.5ML ORAL CONCENTRATE SOLUTION U/D SL PRN (00:30)
[2019-01-01] MEDS ORDERED: SCOPOLAMINE 1MG TRANSDERMAL PATCH TOP PRN (00:30)
[2019-01-01] MEDS ORDERED: LORazepam 2 MG/ML VIAL (J2060) IV PRN (00:30)
[2019-01-01] MEDS: MORPHINE 4 MG/ML 1ML VIAL/SYRINGE (J2270) IV PRN ×2 (02:00→06:09)
--- NOTE | 2019-01-01 07:04 | REP ---
CT pulmonary angiogram: With IV contrast. History: Shortness of breath. Tachycardia, hypoxia. Rule out pulmonary embolism. No comparison CT pulmonary angiogram. Contrast dose: 100 ML of Isovue [address] technique: Helical scanning is acquired and overlapping 1.5 mm and contiguous 3 mm axial images are reformatted. In addition, maximum intensity projection and multiplanar re-formation images are generated in sagittal and coronal imaging projections. CT pulmonary angiographic findings: There is good opacification in the pulmonary arterial tree. There is no CT evidence of pulmonary embolus. No evidence of aortic aneurysm or dissection. There is a hiatal hernia. No hilar or mediastinal mass or adenopathy is observed. No pleural or pericardial effusions seen. Maximal intensity projection images show no evidence of filling defect or vessel cutoff. No pulmonary nodule, mass, or infiltrate is appreciated. There is a low density well circumscribed lesion in the left lobe of the liver 2.2 cm in greatest diameter consistent with a cyst. No adrenal abnormality is observed. Impression: Sliding-type hiatal hernia. Otherwise negative CT pulmonary angiogram. No CT evidence of pulmonary embolism. Electronically Signed by Christiano Begum MD 01/01/2019 07:56 A
[2019-01-01] MEDS ORDERED: ESCITALOPRAM OXALATE 10 MG TAB (LEXAPRO) PO SCH (09:00)
[2019-01-01] MEDS ORDERED: SPIRONOLACTONE 25 MG TAB PO SCH (09:00)
[2019-01-01] MEDS ORDERED: PANTOPRAZOLE 40MG INJ (PROTONIX) (C9113) IV SCH (09:00)
[2019-01-01] MEDS ORDERED: DIVALPROEX 500MG *ER* TAB PO SCH (09:00)
[2019-01-01] MEDS ORDERED: SENNA 8.6 MG TAB (SENOKOT) PO SCH (09:00)
[2019-01-01] MEDS ORDERED: OLANZapine 5 MG TAB PO SCH (09:00)
[2019-01-01] MEDS ORDERED: ENOXAPARIN 40 MG/0.4 ML SYRINGE (J1650) SC SCH (09:00)
--- NOTE | 2019-01-01 09:30 | REP ---
CT abdomen and pelvis with IV but without oral contrast: History: Generalized abdominal pain. Comparison abdomen CT study is from January 07, 2018. CT contrast dose: 100 ml of intravenous Isovue 370. CT findings: There is a 2.2 cm cyst in the left lobe of the liver unchanged from the comparison study. There is a 0.9 cm cyst in the right lobe also unchanged. A phrygian cap morphology is seen in the gallbladder. No stone is appreciated. There is mild diffuse fatty infiltration of the liver. No abnormalities noted in the spleen. A sliding type hiatal hernia is observed. No adrenal lesion is seen. No abnormalities observed in the pancreas. The kidneys enhance symmetrically. There is a peripheral cyst in the lower pole left kidney which measures 1.7 cm. A subcentimeter cyst seen in the upper pole region posteriorly in the right kidney. There is a parapelvic cyst left mid kidney which measures 1.8 cm in diameter. There is high-grade stenosis versus short segment occlusion of the celiac artery origin from the abdominal aorta. Just beyond this, the celiac artery shows slightly dilated caliber. Question post stenotic dilation. The superior mesenteric artery is widely patent at its origin although there is calcific plaquing at mid SFA with 50-60% luminal narrowing. There is a hypertrophied collateral between the SMA and the right hepatic artery coursing in a redundant fashion in the right mid abdomen. These findings are unchanged. The inferior mesenteric artery is fairly large and patent as before. The right renal artery is duplicated. No renal artery stenosis is seen. Prostate, seminal vesicles, and urinary bladder are unremarkable. There is a Valerio catheter noted however, the Valerio balloon appears to be partially dislodged. It is inflated in the posterior aspect of the bulbous urethra. This should be deflated, the Valerio catheter should be advanced, and the balloon reinflated. There is no evidence of free intraperitoneal air. Moderate stool is seen in the rectum and sigmoid colon. No small or large bowel dilation is seen. Impression: 1. Malpositioned Valerio catheter. Balloon inflated in the bulbous urethra. This should be repositioned. 2. 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 There is also focal stenosis of the mid superficial femoral artery. This is unchanged. 3. Mild fatty infiltration of the liver. 4. Hepatic cysts. Renal cysts. Appendix not directly visualized but there is no inflammatory change to suggest appendicitis. Electronically Signed by Christiano Begum MD 01/01/2019 11:10 A
--- NOTE | 2019-01-01 10:20 | IPN ---
DATE: 12/31/2018 Maury is seen in the emergency room (ER) in interim bed status, admitted to the hospitalist's service with acute abdomen, suspected mesenteric ischemia/ischemic bowel. He is currently on comfort measures. PHYSICAL EXAM: He is seen in the ER, approximately 20 family members present. He is unresponsive. His respirations are labored. He is not restless or appear uncomfortable. Lungs are rhonchorous. Heart, regular rate and rhythm. Abdomen distended with no bowel sounds. IMPRESSION: Comfort measures. PLAN: Comfort measures are being met. Met with the family. They do not state any unmet needs at this time. They can reach me through the nursing staff and made them aware of this.
--- NOTE | 2019-01-01 17:17 | ECGEPIP ---
[facility] - ED Test Date: 2018-12-31 Pat Name: KARLA VENEGAS Department: Room: - Gender: Male Capability Lead: tonia : 1940 Requested By: JEFF Silva Order Number: [id number] Reading MD: Joel Mitchell Measurements Intervals [place] Rate: 125 P: 250 GA: 157 QRS: QRSD: 136 T: 139 QT: 328 QTc: 474 Interpretive Statements SINUS TACHYCARDIA LEFT BUNDLE BRANCH BLOCK is new from previous tracings, consider ischemia Electronically Signed on 01-01-2019 17:17:43 EDT by Joel Mitchell
--- NOTE | 2019-01-02 08:21 | DSES ---
DATE OF ADMISSION: 12/31/2018 DATE OF DISCHARGE: 01/01/2019 PRINCIPAL DIAGNOSIS: Multisystem organ failure secondary to presumed bowel infarction. SECONDARY DIAGNOSES: 1. Mesenteric ischemia. 2. History of dementia. HISTORY: Maury Bear was admitted to the hospitalist service with abdominal pain. It quickly became apparent that he had a catastrophic abdominal event, presumably infarcted bowel. He was placed on comfort measures. I saw him just once when he was on comfort measures and he was still in the emergency room. All of his care needs were being met. He surrounded by family a few hours later. Details concerning laboratories, etc. are in the permanent medical record and will not be repeated here.
--- NOTE | 2019-01-05 15:09 | DSES ---
DATE OF ADMISSION: 12/31/2018 DATE OF DISCHARGE: 01/01/2019 ADDENDUM TO DISCHARGE SUMMARY: ADDITIONAL DIAGNOSIS: Acute hypercarbic respiratory failure with metabolic encephalopathy secondary to hypercarbia.
== END 2019-01-01 14:51 | disposition expired | DRG 393 ==
LOC: M ED 10:39 → EDBD 10:39 → M ED INP 16:31 → M MSPAV 01-01 13:49
PROVIDERS: ADMIT Hospitalist; ATTEND Family Medicine
DX: K55.069 Acute infarction of intestine, part and extent unspecified (principal); J96.02 Acute respiratory failure with hypercapnia; G93.41 Metabolic encephalopathy; I77.4 Celiac artery compression syndrome; J44.9 Chronic obstructive pulmonary disease, unspecified; Z51.5 Encounter for palliative care; F03.90 Unspecified dementia, unspecified severity, without behavioral disturbance, psychotic disturbance, mood disturbance, and anxiety; E78.5 Hyperlipidemia, unspecified; K21.9 Gastro-esophageal reflux disease without esophagitis; N40.0 Benign prostatic hyperplasia without lower urinary tract symptoms; T83.021A Displacement of indwelling urethral catheter, initial encounter; F31.9 Bipolar disorder, unspecified; Z66 Do not resuscitate; Y84.6 Urinary catheterization as the cause of abnormal reaction of the patient, or of later complication, without mention of misadventure at the time of the procedure